=== PATIENT | male | born 1975 | race Caucasian/White ===

== ENCOUNTER 2016-10-26 20:27 | Inpatient (IN) | payer OTHER ==
[~2016-10-26] VITALS: Ht 188 cm; Wt 93.0 kg
--- NOTE | 2016-10-26 21:53 | PHYS DOC ---
Past Medical History Past Medical History: No Pertinent History Past Surgical History: No Surgical History Alcohol Use: Rarely Drug Use: None Adult General Chief Complaint Chief Complaint: ABDOMINAL PAIN HPI HPI 41-year-old gentleman presenting to the emergency department with periumbilical abdominal pain this started this morning around 8:00 AM. He was able to eat breakfast and lunch however has not eaten dinner because he was feeling nauseous. He denies any vomiting. He denies fevers or chills. He denies that the pain is migrating. It is sharp moderate nonradiating and without alleviating factors. View of systems is negative for fevers chills chest pain shortness of breath vomiting. He denies blood in his stools constipation or diarrhea. All other review of systems is negative unless otherwise noted in history of present illness. Review of Systems Review of Systems SEE ABOVE. Current Medications Current Medications Current Medications Medications (Trade) Dose Ordered Sig/Bhavna Start Time Stop Time Status Last Admin Dose Admin Clindamycin Phosphate 50 ml @ 100 mls/hr 1X ONCE 10/27/16 00:00 10/27/16 00:00 DC Fentanyl Citrate (Fentanyl 2ml Vial) 25 mcg 1X ONCE 10/26/16 22:00 10/26/16 22:01 DC Iohexol (Omnipaque 300 Mg/ml) 60 ml 1X ONCE 10/26/16 23:15 10/26/16 23:16 DC 10/26/16 23:25 60 ML Levofloxacin/ Dextrose 100 ml @ 100 mls/hr 1X ONCE 10/27/16 00:00 10/27/16 00:59 Metronidazole (FLAGYL 500Mmg PREMIX) 100 ml @ 100 mls/hr 1X ONCE 10/27/16 01:00 10/27/16 01:59 Morphine Sulfate 2 mg 2 mg PRN Q2HR PRN 10/27/16 00:00 10/27/16 23:59 Ondansetron HCl (Zofran) 4 mg PRN Q8HRS PRN 10/27/16 00:00 10/27/16 23:59 Sodium Chloride 1,000 ml @ 125 mls/hr Q8H 10/27/16 00:00 10/27/16 00:01 DC Sodium Chloride (Iv Sodium Chloride 0.9% 1000ml Bag) 1,000 ml @ 1,000 mls/hr Q1H 10/26/16 22:00 10/26/16 22:59 DC 10/26/16 22:44 1,000 MLS/HR Allergies Allergies Allergies Coded Allergies Type Severity Reaction Last Updated Verified Penicillins Allergy Intermediate RASH 10/26/16 Yes Physical Exam Physical Exam Constitutional: Well developed, well nourished, no acute distress, non-toxic appearance. HENT: Normocephalic, atraumatic, bilateral external ears normal, oropharynx moist, no oral exudates, nose normal. [] Eyes: PERRLA, EOMI, conjunctiva normal, no discharge. [] Neck: Normal range of motion, no tenderness, supple, no stridor. Cardiovascular:Heart rate regular rhythm, no murmur [] Lungs & Thorax: Bilateral breath sounds clear to auscultation Abdomen: Abdomen is soft and mildly tender in the right lower quadrant. No rebound tenderness or guarding is present. Positive McBurney's point. Negative Barba sign. No ecchymosis lacerations or abrasions. Of the abdomen. Skin: Warm, dry, no erythema, no rash. Back: No tenderness, no CVA tenderness. [] Extremities: No tenderness, no cyanosis, no clubbing, ROM intact, no edema. Neurologic: Alert and oriented X 3, normal motor function, normal sensory function, no focal deficits noted. [] Psychologic: Affect normal, judgement normal, mood normal. [] Current Patient Data Vital Signs Vital Signs Date Time Temp Pulse Resp B/P Pulse Ox O2 Delivery O2 Flow Rate FiO2 10/26/16 20:51 98.8 98 20 120/90 100 Room Air 98.8 Lab Values Laboratory Tests Test 10/26/16 21:34 10/26/16 22:35 White Blood Count 17.9x10^3/uL (4.0-11.0) H Red Blood Count 4.84x10^6/uL (4.30-5.70) Hemoglobin 15.1g/dL (13.0-17.5) Hematocrit 43.9% (39.0-53.0) Mean Corpuscular Volume 91fL (79-100) Mean Corpuscular Hemoglobin 31pg (25-35) Mean Corpuscular Hemoglobin Concent 35g/dL (31-37) Red Cell Distribution Width 12.4% (11.5-14.5) Platelet Count 248x10^3/uL (140-400) Neutrophils (%) (Auto) 84% (31-73) H Lymphocytes (%) (Auto) 8% (24-48) L Monocytes (%) (Auto) 7% (0-9) Eosinophils (%) (Auto) 1% (0-3) Basophils (%) (Auto) 0% (0-3) Neutrophils # (Auto) 14.9x10^3uL (1.8-7.7) H Lymphocytes # (Auto) 1.5x10^3/uL (1.0-4.8) Monocytes # (Auto) 1.3x10^3/uL (0.0-1.1) H Eosinophils # (Auto) 0.2x10^3/uL (0.0-0.7) Basophils # (Auto) 0.1x10^3/uL (0.0-0.2) Segmented Neutrophils % 78% (35-66) H Band Neutrophils % 4% (0-9) Lymphocytes % 13% (24-48) L Monocytes % 4% (0-10) Eosinophils % 1% (0-5) Platelet Estimate Adequate (ADEQUATE) Sodium Level 140mmol/L (136-145) Potassium Level 3.7mmol/L (3.5-5.1) Chloride Level 104mmol/L (98-107) Carbon Dioxide Level 29mmol/L (21-32) Anion Gap 7 (6-14) Blood Urea Nitrogen 19mg/dL (8-26) Creatinine 1.4mg/dL (0.7-1.3) H Estimated GFR (Cockcroft-Gault) 55.6 BUN/Creatinine Ratio 14 (6-20) Glucose Level 112mg/dL (70-99) H Calcium Level 9.0mg/dL (8.5-10.1) Total Bilirubin 0.4mg/dL (0.2-1.0) Aspartate Amino Transferase (AST) 21U/L (15-37) Alanine Aminotransferase (ALT) 38U/L (16-63) Alkaline Phosphatase 65U/L (46-116) Total Protein 7.5g/dL (6.4-8.2) Albumin 4.1g/dL (3.4-5.0) Albumin/Globulin Ratio 1.2 (1.0-1.7) Lipase 378U/L (73-393) Urine Collection Type Unknown Urine Color Yellow Urine Clarity Clear Urine pH 5.5 Urine Specific [place] 1.025 Urine Protein Negativemg/dL (NEG-TRACE) Urine Glucose (UA) Negativemg/dL (NEG) Urine Ketones (Stick) Negativemg/dL (NEG) Urine Blood Negative (NEG) Urine Nitrite Negative (NEG) Urine Bilirubin Negative (NEG) Urine Urobilinogen Dipstick 1.0mg/dL (0.2 mg/dL) Urine Leukocyte Esterase Negative (NEG) Urine RBC 0/HPF (0-2) Urine WBC 0/HPF (0-4) Urine Squamous Epithelial Cells Occ/LPF Urine Bacteria 0/HPF (0-FEW) Urine Mucus Mod/LPF Laboratory Tests 10/26/16 21:34 Laboratory Tests 10/26/16 21:34 EKG EKG [] Radiology/Procedures Radiology/Procedures [] Course & Med Decision Making Course & Med Decision Making Pertinent Labs and Imaging studies reviewed. (See chart for details) [] 41-year-old gentleman presenting to the emergency department today with right lower quadrant abdominal pain this started this morning around 8:00. Afebrile with mild tachycardia. Pertinent physical exam findings showed an equivocal McBurney's point. Blood work was obtained. CT the abdomen pelvis showed signs of appendicitis. The patient was given IV antibiotics and admitted to our hospital for further evaluation workup and care. Surgical consult was placed. Dragon Disclaimer Dragon Disclaimer This electronic medical record was generated, in whole or in part, using a voice recognition dictation system. Departure Departure Impression: Primary Impression: Abdominal pain, acute, right lower quadrant Disposition: ADMITTED INPATIENT Condition: STABLE Referrals: UNKNOWN PCP NAME (PCP) CR MILLER MD, AUSTIN L MD Oct 26, 2016 21:53
[2016-10-26 21:54] LABS: BASO # 0.1 x10^3/uL (0.0-0.2); BASO % 0 % (0-3); EOS % 1 % (0-3); HEMATOCRIT 43.9 % (39.0-53.0); HEMOGLOBIN 15.1 g/dL (13.0-17.5); LYMPH # 1.5 x10^3/uL (1.0-4.8); LYMPH % 8 % (24-48); MEAN CORPUSCULAR HEMOGLOBIN 31 pg (25-35); MEAN CORPUSCULAR HGB CONC 35 g/dL (31-37); MEAN CORPUSCULAR VOLUME 91 fL (79-100); MONO % 7 % (0-9); NEUT % 84 % (31-73); PLATELET COUNT 248 x10^3/uL (140-400); RED BLOOD COUNT 4.84 x10^6/uL (4.30-5.70); RED CELL DISTRIBUTION WIDTH 12.4 % (11.5-14.5); WHITE BLOOD COUNT 17.9 x10^3/uL (4.0-11.0)
[2016-10-26] MEDS ORDERED: FENTANYL PF 100 MCG/2 ML VIAL. IV ONE (22:00)
[2016-10-26] MEDS ORDERED: IV NORMAL SALINE 1000ML BAG 1,000 ML IV SCH (22:00)
[2016-10-26] MEDS ORDERED: ONDANSETRON PF 4 MG/2 ML VIAL. IV ONE (22:00)
[2016-10-26 22:07] LABS: CREATININE 1.4 mg/dL (0.7-1.3); GFR 55.6; POTASSIUM 3.7 mmol/L (3.5-5.1)
[2016-10-26 22:12] LABS: ALBUMIN 4.1 g/dL (3.4-5.0); ALBUMIN/GLOBULIN RATIO 1.2 (1.0-1.7); TOTAL BILIRUBIN 0.4 mg/dL (0.2-1.0); TOTAL PROTEIN 7.5 g/dL (6.4-8.2)
[2016-10-26 22:36] LABS: % EOS 1 % (0-5); PLT ESTIMATE ADEQUATE (ADEQUATE)
[2016-10-26 22:50] LABS: BILIRUBIN,URINE NEGATIVE (NEG); GLUCOSE,URINE NEGATIVE (NEG); NITRITE,URINE NEGATIVE (NEG); PH,URINE 5.5; PROTEIN,URINE NEGATIVE (NEG-TRACE)
[2016-10-26 22:56] LABS: BACTERIA,URINE 0 /HPF (0-FEW); RBC,URINE 0 /HPF (0-2); SQUAMOUS EPITHELIAL CELL,UR OCC /LPF; WBC,URINE 0 /HPF (0-4)
[2016-10-26] MEDS ORDERED: IOHEXOL 300 MG/ML 75 ML VIAL IV ONE (23:15)
--- NOTE | 2016-10-26 23:41 | RAD ---
INDICATION: Abdomen pain. COMPARISON: None TECHNIQUE: Axial CT images obtained through the abdomen and pelvis. Intravenous contrast was utilized. One or more of the following individualized dose reduction techniques were utilized for this examination: 1. Automated exposure control; 2. Adjustment of the mA and/or kV according to patient size; 3. Use of iterative reconstruction technique. FINDINGS: Abdominal aorta not aneurysmal. No intrahepatic bile duct dilation. No peripancreatic edema. Spleen unremarkable. No hydronephrosis. 8 millimeter nonobstructive right renal stone. No definite evidence of small bowel obstruction. Bladder unremarkable within limits of CT. Blind-ending tubular structure right lower quadrant measuring 13 millimeters with small amount of adjacent stranding to the fat. There is a suspected appendicolith. Degenerative changes of spine IMPRESSION: Findings concerning for acute appendicitis. Electronically signed by: Dimitris Trevino (Oct 26, 2016 23:40:04)
[2016-10-27] VITALS (13 sets, daily range): BP systolic 98–127; BP diastolic 53–80
[2016-10-27] MEDS ORDERED: IV NORMAL SALINE 1000ML BAG 1,000 ML IV SCH
[2016-10-27] MEDS ORDERED: CLINDAMYCIN 600MG PREMIX 50 ML IV ONE
--- NOTE | 2016-10-27 00:54 | ACF ---
Admission Forms Criteria ABDOMINAL PAIN Clinical Indications for Admission to Inpatient Care (Place 'X' for any and all applicable criteria): Admission is indicated for ANY ONE of the following(1)(2)(3)(4)(5): [X]I. Inpatient admission required rather than observation care (Also use Abdominal Pain: Observation Care, as appropriate) because of ANY ONE of the following: [ ]a) Severe pain requiring acute inpatient management [ ]b) Identification of etiology/finding that requires inpatient care (eg, aortic dissection, free air) [ ]c) Absent bowel sounds with complete ileus(6) [ ]d) Suspected toxic megacolon [ ]e) Severe electrolyte abnormalities requiring inpatient care [X]f) High fever or infection requiring inpatient admission as indicated by ANY ONE of following(7)(8): [X] i) Appropriate outpatient or observational care antimicrobial treatment unavailable, not effective, or not feasible [ ] ii) Documented bacteremia [ ] iii) Temperature > 104.9 degrees F (oral) [ ] iv) T >103.1 F (oral) or < 96.8 F(rectal) that does not respond to all emergency treatment measures [ ]g) Signs of intestinal obstruction [B] [ ]h) Hemodynamic instability [ ]i) IV fluid to replace significant ongoing losses (greater than 3 L/m2 per day) (12)(13) [ ]j) Percutaneous or open drainage (eg, abscess, biliary tract ) procedures [ ]k) Parenteral nutrition regimen that must be implemented on inpatient basis [ ]l) Other condition,treatment or monitoring requiring inpatient admission. [ ]II. Peritoneal signs present [ ]III. Surgery needed that cannot be performed on an ambulatory basis. [ ]IV. Evaluation requires patient to not eat or drink for extended period ( eg, more than 24 hours). [ ]V. Contraindications and/or Inappropriate clinical situations for Observational Care in patients with abdominal pain, when ANY ONE of the following is required: [ ]a) Thorough evaluation is required to prevent catastrophic events due to delays in diagnosing (e.g.Mesenteric ischemia) 1,3 [ ]b) Patient with severe pathology or with chronic symptoms unlikely to improve in the ED stay (3) [ ]. General contraindications and/or Inappropriate clinical situations for Observational Care in patients with abdominal pain, when ANY ONE of the following is required: [ ]a) Prediction of prolongation of LOS based on ANY ONE of the following may be considered as a contraindication for observational care 2, 3, 4, 5, 6, 7, 8, 9, 10, 11 [ ]i) Age > 65 yrs. [ ]ii) Patient arriving by ambulance [ ]iii) Patient with high acuity [ ]iv) Patient requiring vital sign monitoring [ ]v) Patient on IV medication [ ]b) Systolic blood pressures 180mmHg 3,12 [ ]c) Patient with altered mental status including delirium and other alteration of consciousness, (3) [ ]d) Patient whose discharge disposition will be to a [facility]ci home or rehabilitation home should not be managed in Emergency Department Observation Unit. CMS rule requires 3 days hospital stay before such placement.3,13 [ ]e) Patient with failure to thrive due to broad array of etiologies 3,16,17 [ ]f) Inability to ambulate 3,14 Extended stay beyond goal length of stay may be needed for(2)(3): [ ]a) Persistent abdominal pain with suspected intra-abdominal process [ ]b) Diagnosed condition requiring continued stay (e.g., pancreatitis, complicated diverticulitis) [ ]c) Surgery (e.g., colectomy) The original [employer] content created by [employer] has been revised. The portions of the content which have been revised are identified through the use of italic text or in bold, and [employer] has neither reviewed nor approved the modified material.All other unmodified content is copyright [employer]. Please see references footnoted in the original [employer] edition 2016 Admission Criteria Met?: Yes VIDHI ABARCA Oct 27, 2016 00:54
[2016-10-27] MEDS ORDERED: METRONIDAZOLE 500mg PREMIX 100 ML IV ONE (01:00)
[2016-10-27 03:02] LABS: BASO # 0.1 x10^3/uL (0.0-0.2); BASO % 0 % (0-3); EOS % 0 % (0-3); HEMATOCRIT 40.3 % (39.0-53.0); LYMPH # 1.6 x10^3/uL (1.0-4.8); LYMPH % 9 % (24-48); MEAN CORPUSCULAR HEMOGLOBIN 32 pg (25-35); MEAN CORPUSCULAR HGB CONC 35 g/dL (31-37); MEAN CORPUSCULAR VOLUME 91 fL (79-100); MONO % 9 % (0-9); NEUT % 81 % (31-73); PLATELET COUNT 204 x10^3/uL (140-400); RED BLOOD COUNT 4.43 x10^6/uL (4.30-5.70); RED CELL DISTRIBUTION WIDTH 12.1 % (11.5-14.5); WHITE BLOOD COUNT 17.4 x10^3/uL (4.0-11.0)
[2016-10-27 03:17] LABS: CALCIUM 8.5 mg/dL (8.5-10.1); CREATININE 1.3 mg/dL (0.7-1.3); GFR 60.5; POTASSIUM 3.4 mmol/L (3.5-5.1)
[2016-10-27] MEDS: ACETAMINOPHEN 325 MG TABLET. PO PRN ×2 (03:33→10:20)
[2016-10-27] MEDS ORDERED: ONDANSETRON PF 4 MG/2 ML VIAL. IV PRN ×3 (09:16→12:15)
[2016-10-27] MEDS: METRONIDAZOLE 500mg PREMIX 100 ML IV SCH ×2 (10:22→20:46)
[2016-10-27] MEDS: IV NORMAL SALINE 1000ML BAG 1,000 ML IV SCH ×2 (10:23→19:30)
--- NOTE | 2016-10-27 11:50 | PDOC ---
SURGICAL PROGRESS NOTE Subjective 41 yo M with appendicitis TO OR for lap vs open appendectomy R/B/A d/w pt and pt's Thanks for consult! [id number] Vital Signs Vital Signs Date Time Temp Pulse Resp B/P Pulse Ox O2 Delivery O2 Flow Rate FiO2 10/27/16 07:00 98.1 95 18 121/73 99 Room Air 98.1 I&O Intake and Output 10/27/16 07:00 Intake Total 1000 ml Balance 1000 ml Intake Oral 0 ml IV Total 1000 ml Labs Laboratory Tests Test 10/26/16 21:34 10/26/16 22:35 10/27/16 01:00 10/27/16 02:50 White Blood Count 17.9x10^3/uL (4.0-11.0) 17.4x10^3/uL (4.0-11.0) Red Blood Count 4.84x10^6/uL (4.30-5.70) 4.43x10^6/uL (4.30-5.70) Hemoglobin 15.1g/dL (13.0-17.5) 14.0g/dL (13.0-17.5) Hematocrit 43.9% (39.0-53.0) 40.3% (39.0-53.0) Mean Corpuscular Volume 91fL (79-100) 91fL (79-100) Mean Corpuscular Hemoglobin 31pg (25-35) 32pg (25-35) Mean Corpuscular Hemoglobin Concent 35g/dL (31-37) 35g/dL (31-37) Red Cell Distribution Width 12.4% (11.5-14.5) 12.1% (11.5-14.5) Platelet Count 248x10^3/uL (140-400) 204x10^3/uL (140-400) Neutrophils (%) (Auto) 84% (31-73) 81% (31-73) Lymphocytes (%) (Auto) 8% (24-48) 9% (24-48) Monocytes (%) (Auto) 7% (0-9) 9% (0-9) Eosinophils (%) (Auto) 1% (0-3) 0% (0-3) Basophils (%) (Auto) 0% (0-3) 0% (0-3) Neutrophils # (Auto) 14.9x10^3uL (1.8-7.7) 14.1x10^3uL (1.8-7.7) Lymphocytes # (Auto) 1.5x10^3/uL (1.0-4.8) 1.6x10^3/uL (1.0-4.8) Monocytes # (Auto) 1.3x10^3/uL (0.0-1.1) 1.6x10^3/uL (0.0-1.1) Eosinophils # (Auto) 0.2x10^3/uL (0.0-0.7) 0.0x10^3/uL (0.0-0.7) Basophils # (Auto) 0.1x10^3/uL (0.0-0.2) 0.1x10^3/uL (0.0-0.2) Segmented Neutrophils % 78% (35-66) Band Neutrophils % 4% (0-9) Lymphocytes % 13% (24-48) Monocytes % 4% (0-10) Eosinophils % 1% (0-5) Platelet Estimate Adequate (ADEQUATE) Sodium Level 140mmol/L (136-145) 136mmol/L (136-145) Potassium Level 3.7mmol/L (3.5-5.1) 3.4mmol/L (3.5-5.1) Chloride Level 104mmol/L (98-107) 105mmol/L (98-107) Carbon Dioxide Level 29mmol/L (21-32) 26mmol/L (21-32) Anion Gap 7 (6-14) 5 (6-14) Blood Urea Nitrogen 19mg/dL (8-26) 14mg/dL (8-26) Creatinine 1.4mg/dL (0.7-1.3) 1.3mg/dL (0.7-1.3) Estimated GFR (Cockcroft-Gault) 55.6 60.5 BUN/Creatinine Ratio 14 (6-20) Glucose Level 112mg/dL (70-99) 116mg/dL (70-99) Calcium Level 9.0mg/dL (8.5-10.1) 8.5mg/dL (8.5-10.1) Total Bilirubin 0.4mg/dL (0.2-1.0) Aspartate Amino Transf (AST/SGOT) 21U/L (15-37) Alanine Aminotransferase (ALT/SGPT) 38U/L (16-63) Alkaline Phosphatase 65U/L (46-116) Total Protein 7.5g/dL (6.4-8.2) Albumin 4.1g/dL (3.4-5.0) Albumin/Globulin Ratio 1.2 (1.0-1.7) Lipase 378U/L (73-393) Urine Collection Type Unknown Urine Color Yellow Urine Clarity Clear Urine pH 5.5 Urine Specific [place] 1.025 Urine Protein Negativemg/dL (NEG-TRACE) Urine Glucose (UA) Negativemg/dL (NEG) Urine Ketones (Stick) Negativemg/dL (NEG) Urine Blood Negative (NEG) Urine Nitrite Negative (NEG) Urine Bilirubin Negative (NEG) Urine Urobilinogen Dipstick 1.0mg/dL (0.2 mg/dL) Urine Leukocyte Esterase Negative (NEG) Urine RBC 0/HPF (0-2) Urine WBC 0/HPF (0-4) Urine Squamous Epithelial Cells Occ/LPF Urine Bacteria 0/HPF (0-FEW) Urine Mucus Mod/LPF Lactic Acid Level 1.2mmol/L (0.4-2.0) Laboratory Tests Test 10/26/16 21:34 10/26/16 22:35 10/27/16 01:00 10/27/16 02:50 White Blood Count 17.9x10^3/uL (4.0-11.0) 17.4x10^3/uL (4.0-11.0) Red Blood Count 4.84x10^6/uL (4.30-5.70) 4.43x10^6/uL (4.30-5.70) Hemoglobin 15.1g/dL (13.0-17.5) 14.0g/dL (13.0-17.5) Hematocrit 43.9% (39.0-53.0) 40.3% (39.0-53.0) Mean Corpuscular Volume 91fL (79-100) 91fL (79-100) Mean Corpuscular Hemoglobin 31pg (25-35) 32pg (25-35) Mean Corpuscular Hemoglobin Concent 35g/dL (31-37) 35g/dL (31-37) Red Cell Distribution Width 12.4% (11.5-14.5) 12.1% (11.5-14.5) Platelet Count 248x10^3/uL (140-400) 204x10^3/uL (140-400) Neutrophils (%) (Auto) 84% (31-73) 81% (31-73) Lymphocytes (%) (Auto) 8% (24-48) 9% (24-48) Monocytes (%) (Auto) 7% (0-9) 9% (0-9) Eosinophils (%) (Auto) 1% (0-3) 0% (0-3) Basophils (%) (Auto) 0% (0-3) 0% (0-3) Neutrophils # (Auto) 14.9x10^3uL (1.8-7.7) 14.1x10^3uL (1.8-7.7) Lymphocytes # (Auto) 1.5x10^3/uL (1.0-4.8) 1.6x10^3/uL (1.0-4.8) Monocytes # (Auto) 1.3x10^3/uL (0.0-1.1) 1.6x10^3/uL (0.0-1.1) Eosinophils # (Auto) 0.2x10^3/uL (0.0-0.7) 0.0x10^3/uL (0.0-0.7) Basophils # (Auto) 0.1x10^3/uL (0.0-0.2) 0.1x10^3/uL (0.0-0.2) Segmented Neutrophils % 78% (35-66) Band Neutrophils % 4% (0-9) Lymphocytes % 13% (24-48) Monocytes % 4% (0-10) Eosinophils % 1% (0-5) Platelet Estimate Adequate (ADEQUATE) Sodium Level 140mmol/L (136-145) 136mmol/L (136-145) Potassium Level 3.7mmol/L (3.5-5.1) 3.4mmol/L (3.5-5.1) Chloride Level 104mmol/L (98-107) 105mmol/L (98-107) Carbon Dioxide Level 29mmol/L (21-32) 26mmol/L (21-32) Anion Gap 7 (6-14) 5 (6-14) Blood Urea Nitrogen 19mg/dL (8-26) 14mg/dL (8-26) Creatinine 1.4mg/dL (0.7-1.3) 1.3mg/dL (0.7-1.3) Estimated GFR (Cockcroft-Gault) 55.6 60.5 BUN/Creatinine Ratio 14 (6-20) Glucose Level 112mg/dL (70-99) 116mg/dL (70-99) Calcium Level 9.0mg/dL (8.5-10.1) 8.5mg/dL (8.5-10.1) Total Bilirubin 0.4mg/dL (0.2-1.0) Aspartate Amino Transf (AST/SGOT) 21U/L (15-37) Alanine Aminotransferase (ALT/SGPT) 38U/L (16-63) Alkaline Phosphatase 65U/L (46-116) Total Protein 7.5g/dL (6.4-8.2) Albumin 4.1g/dL (3.4-5.0) Albumin/Globulin Ratio 1.2 (1.0-1.7) Lipase 378U/L (73-393) Urine Collection Type Unknown Urine Color Yellow Urine Clarity Clear Urine pH 5.5 Urine Specific [place] 1.025 Urine Protein Negativemg/dL (NEG-TRACE) Urine Glucose (UA) Negativemg/dL (NEG) Urine Ketones (Stick) Negativemg/dL (NEG) Urine Blood Negative (NEG) Urine Nitrite Negative (NEG) Urine Bilirubin Negative (NEG) Urine Urobilinogen Dipstick 1.0mg/dL (0.2 mg/dL) Urine Leukocyte Esterase Negative (NEG) Urine RBC 0/HPF (0-2) Urine WBC 0/HPF (0-4) Urine Squamous Epithelial Cells Occ/LPF Urine Bacteria 0/HPF (0-FEW) Urine Mucus Mod/LPF Lactic Acid Level 1.2mmol/L (0.4-2.0) Problem List Problems Medical Problems: (1) Abdominal pain, acute, right lower quadrant Status: Acute (2) Appendicitis Status: Acute Problems: MERLYN RUDOLPH MD Oct 27, 2016:50
[2016-10-27] MEDS ORDERED: PROPOFOL 20 ML IV ONE (12:00)
[2016-10-27] MEDS ORDERED: LIDOCAINE 2% 100 MG/5 ML SYRINGE. ONE (12:00)
[2016-10-27] MEDS ORDERED: SUCCINYLCHOLINE 200 MG/10 ML VIAL. ONE (12:01)
[2016-10-27] MEDS ORDERED: ROCURONIUM 50 MG/5 ML VIAL. ONE (12:01)
[2016-10-27] MEDS ORDERED: FENTANYL PF 100 MCG/2 ML VIAL. ONE (12:01)
[2016-10-27] MEDS ORDERED: IV RINGERS,LACTATED 1000ML 1,000 ML IV SCH (12:07)
[2016-10-27] MEDS ORDERED: HYDROMORPHONE 2 MG/ML VIAL. IV PRN (12:15)
[2016-10-27] MEDS ORDERED: FENTANYL PF 100 MCG/2 ML VIAL. IV PRN ×2 (12:15)
[2016-10-27] MEDS ORDERED: PROCHLORPERAZINE 10 MG/2 ML VIAL. IV PRN (12:15)
[2016-10-27] MEDS ORDERED: MORPHINE SULFATE 2 MG/ML DISP.SYRIN. IV PRN ×2 (12:15)
[2016-10-27] MEDS ORDERED: LIDOCAINE 1% 1 ML SYRINGE. ID PRN (12:15)
[2016-10-27] MEDS ORDERED: BUPIVAC MPF-EPI 0.5%-1:200000 30 ML VIAL. ONE (12:55)
[2016-10-27] MEDS ORDERED: DEXAMETHASONE SOD PHOS 20 MG/5 ML VIAL. ONE (13:14)
[2016-10-27] MEDS ORDERED: DESFLURANE 16 TO 30 MINUTES. IH ONE (13:14)
--- NOTE | 2016-10-27 13:34 | PDOC1 ---
History and Physical Date of Admission Date of Admission DATE: 10/27/16 TIME: 13:30 Identification/Chief Complaint Chief Complaint abd pain Source Source: Chart review History of Present Illness History of Present Illness pt out having OR Hx obtained from chart 41-year-old male acute onset periumbilical abdominal pain denied vomiting, fevers or chills. He denies that the pain is migrating. It is sharp moderate nonradiating and without alleviating factors. View of systems is negative for fevers chills chest pain shortness of breath vomiting. He denies blood in his stools constipation or diarrhea. All other review of systems is negative unless otherwise noted in history of present illness. Past Medical History Cardiovascular: No pertinent hx Pulmonary: No pertinent hx GI: No pertinent hx Heme/Onc: No pertinent hx Hepatobiliary: No pertinent hx Psych: No pertinent hx Rheumatologic: No pertinent hx Infectious disease: No pertinent hx ENT: No pertinent hx Renal/: No pertinent hx Endocrine: No pertinent hx Dermatology: No pertinent hx Past Surgical History Past Surgical History: No pertinent history Family History Family History: No Significant Social History Smoke: No ALCOHOL: none Drugs: None Current Problem List Problem List Problems Medical Problems: (1) Abdominal pain, acute, right lower quadrant Status: Acute (2) Appendicitis Status: Acute Problems: Current Medications Current Medications Current Medications Sodium Chloride (Iv Sodium Chloride 0.9% 1000ml Bag) 1,000 ml @ 1,000 mls/hr Q1H IV Last administered on 10/26/16 22:44; Start 10/26/16 at 22:00; Stop at 22:59; Status DC Fentanyl Citrate (Fentanyl 2ml Vial) 25 mcg 1X ONCE IV ; Start 10/26/16 at 22:00 ; Stop 10/26/16 at 22:01; Status DC Ondansetron HCl (Zofran) 4 mg 1X ONCE IV Last administered on 10/26/16 22:44; Start 10/26/16 at 22:00; Stop 10/26/16 at 22:01; Status DC Iohexol (Omnipaque 300 Mg/ml) 60 ml 1X ONCE IV Last administered on 10/26/16 23:25; Start 10/26/16 at 23:15; Stop 10/26/16 at 23:16; Status DC Ondansetron HCl (Zofran) 4 mg PRN Q8HRS PRN IV NAUSEA/VOMITING; Start 10/27/16 at 00:00; Stop 10/27/16 at 09:17; Status DC Morphine Sulfate 2 mg 2 mg PRN Q2HR PRN IV PAIN; Start 10/27/16 at 00:00; Stop 10/27/16 at 23:59 Sodium Chloride 1,000 ml @ 125 mls/hr Q8H IV Last administered on 10/27/16 01: 34; Start 10/27/16 at 00:00; Stop 10/27/16 at 00:01; Status DC Levofloxacin/ Dextrose 100 ml @ 100 mls/hr 1X ONCE IV Last administered on 03:04; Start 10/27/16 at 00:00; Stop 10/27/16 at 00:59; Status DC Clindamycin Phosphate 50 ml @ 100 mls/hr 1X ONCE IV ; Start 10/27/16 at 00:00; Stop 10/27/16 at 00:00; Status DC Metronidazole (FLAGYL 500Mmg PREMIX) 100 ml @ 100 mls/hr 1X ONCE IV Last administered on 10/27/16 04:46; Start 10/27/16 at 01:00; Stop 10/27/16 at 01:59; Status DC Acetaminophen (Tylenol) 650 mg PRN Q6HRS PRN PO MILD PAIN / TEMP Last administered on 10/27/16 10:20; Start 10/27/16 at 03:15 Ondansetron HCl 4 mg 4 mg PRN Q6HRS PRN IV NAUSEA/VOMITING Last administered on 10/27/16 10:21; Start 10/27/16 at 09:16 Sodium Chloride 1,000 ml @ 100 mls/hr Q10H IV Last administered on 10/27/16 10 :23; Start 10/27/16 at 09:30 Levofloxacin/ Dextrose 100 ml @ 100 mls/hr DAILY06 IV Last administered on 10/27 10:21; Start 10/27/16 at 09:30 Metronidazole 100 ml @ 100 mls/hr Q12HR IV Last administered on 10/27/16 10:22 ; Start 10/27/16 at 10:00 Propofol (Diprivan) 20 ml @ As Directed STK-MED ONCE IV ; Start 10/27/16 at 12:00 ; Stop 10/27/16 at 12:01; Status DC Lidocaine HCl (Lidocaine HCl 2% Abboject) 100 mg STK-MED ONCE .ROUTE ; Start 10/27/16 at 12:00; Stop 10/27/16 at 12:01; Status DC Fentanyl Citrate (Fentanyl 2ml Vial) 100 mcg STK-MED ONCE .ROUTE ; Start at 12:01; Stop 10/27/16 at 12:02; Status DC Rocuronium [place] (Zemuron) 50 mg STK-MED ONCE .ROUTE ; Start 10/27/16 at 12:01 ; Stop 10/27/16 at 12:02; Status DC Succinylcholine Chloride (Anectine) 200 mg STK-MED ONCE .ROUTE ; Start 10/27/16 at 12:01; Stop 10/27/16 at 12:02; Status DC Ondansetron HCl (Zofran) 4 mg PRN Q6HRS PRN IV NAUSEA/VOMITING; Start 10/27/16 at 12:15; Stop 10/28/16 at 12:14 Fentanyl Citrate (Fentanyl 2ml Vial) 25 mcg PRN Q5MIN PRN IV MILD PAIN; Start 10/27/16 at 12:15; Stop 10/28/16 at 12:14 Fentanyl Citrate (Fentanyl 2ml Vial) 50 mcg PRN Q5MIN PRN IV MODERATE PAIN; Start 10/27/16 at 12:15; Stop 10/28/16 at 12:14 Morphine Sulfate 1 mg 1 mg PRN Q10MIN PRN IV SEVERE PAIN; Start 10/27/16 at 12: 15; Stop 10/28/16 at 12:14 Lactated Ringer's (Iv Lactated Ringers) 1,000 ml @ 30 mls/hr Q24H IV ; Start at 12:07; Stop 10/28/16 at 00:06 Lidocaine HCl 2 ml PRN 1X PRN ID PRIOR TO IV START; Start 10/27/16 at 12:15; Stop 10/28/16 at 12:14 Hydromorphone HCl (Dilaudid) 0.5 mg PRN Q10MIN PRN IV SEV PAIN, Second choice; Start 10/27/16 at 12:15; Stop 10/28/16 at 12:14 Prochlorperazine Edisylate (Compazine) 5 mg PACU PRN PRN IV NAUSEA, MRX1; Start 10/27/16 at 12:15; Stop 10/28/16 at 12:14 Bupivacaine HCl/ Epinephrine Bitart (Sensorcain-Mpf Epi 0.5%-1:[id number]) 30 ml STK -MED ONCE .ROUTE ; Start 10/27/16 at 12:55; Stop 10/27/16 at 12:56; Status DC Dexamethasone Sodium Phosphate (Decadron) 20 mg STK-MED ONCE .ROUTE ; Start 10/27 at 13:14; Stop 10/27/16 at 13:15; Status DC Desflurane (Suprane) 15 ml STK-MED ONCE IH ; Start 10/27/16 at 13:14; Stop at 13:15; Status DC Allergies Allergies: Coded Allergies: Penicillins (Verified Allergy, Intermediate, RASH, 10/26/16) ROS Review of System out in oR Vitals Vitals Vital Signs Date Time Temp Pulse Resp B/P Pulse Ox O2 Delivery O2 Flow Rate FiO2 10/27/16 11:00 101.8 109 18 127/80 99 Room Air 101.8 Labs Labs Laboratory Tests Test 10/26/16 21:34 10/26/16 22:35 10/27/16 01:00 10/27/16 02:50 White Blood Count 17.9x10^3/uL (4.0-11.0) 17.4x10^3/uL (4.0-11.0) Red Blood Count 4.84x10^6/uL (4.30-5.70) 4.43x10^6/uL (4.30-5.70) Hemoglobin 15.1g/dL (13.0-17.5) 14.0g/dL (13.0-17.5) Hematocrit 43.9% (39.0-53.0) 40.3% (39.0-53.0) Mean Corpuscular Volume 91fL (79-100) 91fL (79-100) Mean Corpuscular Hemoglobin 31pg (25-35) 32pg (25-35) Mean Corpuscular Hemoglobin Concent 35g/dL (31-37) 35g/dL (31-37) Red Cell Distribution Width 12.4% (11.5-14.5) 12.1% (11.5-14.5) Platelet Count 248x10^3/uL (140-400) 204x10^3/uL (140-400) Neutrophils (%) (Auto) 84% (31-73) 81% (31-73) Lymphocytes (%) (Auto) 8% (24-48) 9% (24-48) Monocytes (%) (Auto) 7% (0-9) 9% (0-9) Eosinophils (%) (Auto) 1% (0-3) 0% (0-3) Basophils (%) (Auto) 0% (0-3) 0% (0-3) Neutrophils # (Auto) 14.9x10^3uL (1.8-7.7) 14.1x10^3uL (1.8-7.7) Lymphocytes # (Auto) 1.5x10^3/uL (1.0-4.8) 1.6x10^3/uL (1.0-4.8) Monocytes # (Auto) 1.3x10^3/uL (0.0-1.1) 1.6x10^3/uL (0.0-1.1) Eosinophils # (Auto) 0.2x10^3/uL (0.0-0.7) 0.0x10^3/uL (0.0-0.7) Basophils # (Auto) 0.1x10^3/uL (0.0-0.2) 0.1x10^3/uL (0.0-0.2) Segmented Neutrophils % 78% (35-66) Band Neutrophils % 4% (0-9) Lymphocytes % 13% (24-48) Monocytes % 4% (0-10) Eosinophils % 1% (0-5) Platelet Estimate Adequate (ADEQUATE) Sodium Level 140mmol/L (136-145) 136mmol/L (136-145) Potassium Level 3.7mmol/L (3.5-5.1) 3.4mmol/L (3.5-5.1) Chloride Level 104mmol/L (98-107) 105mmol/L (98-107) Carbon Dioxide Level 29mmol/L (21-32) 26mmol/L (21-32) Anion Gap 7 (6-14) 5 (6-14) Blood Urea Nitrogen 19mg/dL (8-26) 14mg/dL (8-26) Creatinine 1.4mg/dL (0.7-1.3) 1.3mg/dL (0.7-1.3) Estimated GFR (Cockcroft-Gault) 55.6 60.5 BUN/Creatinine Ratio 14 (6-20) Glucose Level 112mg/dL (70-99) 116mg/dL (70-99) Calcium Level 9.0mg/dL (8.5-10.1) 8.5mg/dL (8.5-10.1) Total Bilirubin 0.4mg/dL (0.2-1.0) Aspartate Amino Transf (AST/SGOT) 21U/L (15-37) Alanine Aminotransferase (ALT/SGPT) 38U/L (16-63) Alkaline Phosphatase 65U/L (46-116) Total Protein 7.5g/dL (6.4-8.2) Albumin 4.1g/dL (3.4-5.0) Albumin/Globulin Ratio 1.2 (1.0-1.7) Lipase 378U/L (73-393) Urine Collection Type Unknown Urine Color Yellow Urine Clarity Clear Urine pH 5.5 Urine Specific [place] 1.025 Urine Protein Negativemg/dL (NEG-TRACE) Urine Glucose (UA) Negativemg/dL (NEG) Urine Ketones (Stick) Negativemg/dL (NEG) Urine Blood Negative (NEG) Urine Nitrite Negative (NEG) Urine Bilirubin Negative (NEG) Urine Urobilinogen Dipstick 1.0mg/dL (0.2 mg/dL) Urine Leukocyte Esterase Negative (NEG) Urine RBC 0/HPF (0-2) Urine WBC 0/HPF (0-4) Urine Squamous Epithelial Cells Occ/LPF Urine Bacteria 0/HPF (0-FEW) Urine Mucus Mod/LPF Lactic Acid Level 1.2mmol/L (0.4-2.0) Laboratory Tests Test 10/26/16 21:34 10/26/16 22:35 10/27/16 01:00 10/27/16 02:50 White Blood Count 17.9x10^3/uL (4.0-11.0) 17.4x10^3/uL (4.0-11.0) Red Blood Count 4.84x10^6/uL (4.30-5.70) 4.43x10^6/uL (4.30-5.70) Hemoglobin 15.1g/dL (13.0-17.5) 14.0g/dL (13.0-17.5) Hematocrit 43.9% (39.0-53.0) 40.3% (39.0-53.0) Mean Corpuscular Volume 91fL (79-100) 91fL (79-100) Mean Corpuscular Hemoglobin 31pg (25-35) 32pg (25-35) Mean Corpuscular Hemoglobin Concent 35g/dL (31-37) 35g/dL (31-37) Red Cell Distribution Width 12.4% (11.5-14.5) 12.1% (11.5-14.5) Platelet Count 248x10^3/uL (140-400) 204x10^3/uL (140-400) Neutrophils (%) (Auto) 84% (31-73) 81% (31-73) Lymphocytes (%) (Auto) 8% (24-48) 9% (24-48) Monocytes (%) (Auto) 7% (0-9) 9% (0-9) Eosinophils (%) (Auto) 1% (0-3) 0% (0-3) Basophils (%) (Auto) 0% (0-3) 0% (0-3) Neutrophils # (Auto) 14.9x10^3uL (1.8-7.7) 14.1x10^3uL (1.8-7.7) Lymphocytes # (Auto) 1.5x10^3/uL (1.0-4.8) 1.6x10^3/uL (1.0-4.8) Monocytes # (Auto) 1.3x10^3/uL (0.0-1.1) 1.6x10^3/uL (0.0-1.1) Eosinophils # (Auto) 0.2x10^3/uL (0.0-0.7) 0.0x10^3/uL (0.0-0.7) Basophils # (Auto) 0.1x10^3/uL (0.0-0.2) 0.1x10^3/uL (0.0-0.2) Segmented Neutrophils % 78% (35-66) Band Neutrophils % 4% (0-9) Lymphocytes % 13% (24-48) Monocytes % 4% (0-10) Eosinophils % 1% (0-5) Platelet Estimate Adequate (ADEQUATE) Sodium Level 140mmol/L (136-145) 136mmol/L (136-145) Potassium Level 3.7mmol/L (3.5-5.1) 3.4mmol/L (3.5-5.1) Chloride Level 104mmol/L (98-107) 105mmol/L (98-107) Carbon Dioxide Level 29mmol/L (21-32) 26mmol/L (21-32) Anion Gap 7 (6-14) 5 (6-14) Blood Urea Nitrogen 19mg/dL (8-26) 14mg/dL (8-26) Creatinine 1.4mg/dL (0.7-1.3) 1.3mg/dL (0.7-1.3) Estimated GFR (Cockcroft-Gault) 55.6 60.5 BUN/Creatinine Ratio 14 (6-20) Glucose Level 112mg/dL (70-99) 116mg/dL (70-99) Calcium Level 9.0mg/dL (8.5-10.1) 8.5mg/dL (8.5-10.1) Total Bilirubin 0.4mg/dL (0.2-1.0) Aspartate Amino Transf (AST/SGOT) 21U/L (15-37) Alanine Aminotransferase (ALT/SGPT) 38U/L (16-63) Alkaline Phosphatase 65U/L (46-116) Total Protein 7.5g/dL (6.4-8.2) Albumin 4.1g/dL (3.4-5.0) Albumin/Globulin Ratio 1.2 (1.0-1.7) Lipase 378U/L (73-393) Urine Collection Type Unknown Urine Color Yellow Urine Clarity Clear Urine pH 5.5 Urine Specific [place] 1.025 Urine Protein Negativemg/dL (NEG-TRACE) Urine Glucose (UA) Negativemg/dL (NEG) Urine Ketones (Stick) Negativemg/dL (NEG) Urine Blood Negative (NEG) Urine Nitrite Negative (NEG) Urine Bilirubin Negative (NEG) Urine Urobilinogen Dipstick 1.0mg/dL (0.2 mg/dL) Urine Leukocyte Esterase Negative (NEG) Urine RBC 0/HPF (0-2) Urine WBC 0/HPF (0-4) Urine Squamous Epithelial Cells Occ/LPF Urine Bacteria 0/HPF (0-FEW) Urine Mucus Mod/LPF Lactic Acid Level 1.2mmol/L (0.4-2.0) VTE Prophylaxis Ordered VTE Prophylaxis Devices: Yes VTE Pharmacological Prophylaxi: Yes Assessment/Plan Assessment/Plan 1, Acute APPY 2. Leukocytosis POA (WBC 17)\ 3. Mild hypokalemia (3.4) 4. Obesity PLAn: Await from OR Replace K LAbs in AM Start zosyn IV given persistent leukocytosis SARAH Barclay RN Y Oct 27, 2016 13:34
[2016-10-27] MEDS ORDERED: ONDANSETRON PF 4 MG/2 ML VIAL. ONE (13:42)
[2016-10-27] MEDS ORDERED: GLYCOPYRROLATE 1 MG/5 ML VIAL. ONE (13:43)
[2016-10-27] MEDS ORDERED: NEOSTIGMINE METHYLSULFATE 5 MG/5 ML SYRINGE. ONE (13:43)
--- NOTE | 2016-10-27 15:42 | PDOC ---
BRIEF OPERATIVE NOTE Pre-Op Diagnosis Appendicitis Post-Op Diagnosis gangrenous appendicitis Procedure Performed Laparoscopic appendectomy Surgeon Juan Anesthesia Type: General, Local Blood Loss 50 IV Fluid 1000 Specimens Obtained appendix Findings gangrenous appendix Complications none Additional Remarks [id number] MERLYN RUDOLPH MD Oct 27, 2016 15:42
[2016-10-27] MEDS: IV RINGERS,LACTATED 1000ML 1,000 ML IV SCH (15:43)
[2016-10-27] MEDS ORDERED: 0.9 % SODIUM CHLORIDE 10 ML DISP.SYRIN. IV PRN (15:45)
--- NOTE | 2016-10-27 21:27 | CONS ---
DATE OF CONSULTATION: 10/27/2016 REFERRING PHYSICIANS: Dr. Nanci Le, Dr. Byron Davila. Thank you for the consult. CHIEF COMPLAINT: Right lower quadrant abdominal pain. DIAGNOSIS: Appendicitis. PLANNED PROCEDURE: Laparoscopic versus open appendectomy. HISTORY OF PRESENT ILLNESS: This is a pleasant 41-year-old male who reported developing abdominal pain and not feeling well yesterday morning. Throughout the day, things worsened and had some nausea, anorexia, subsequently presented to the Emergency Room for evaluation. He is accompanied by a supportive . He was admitted to the hospital and started on IV antibiotics. He does report feeling somewhat better today. He denies any previous episodes of anything like this. ALLERGIES: He has an allergy to PENICILLIN. MEDICATIONS: None. PAST MEDICAL HISTORY: None. PAST SURGICAL HISTORY: He had a previous lipoma excised from his right hip. SOCIAL HISTORY: No tobacco, very minimal social alcohol. FAMILY HISTORY: Positive for multiple family members with colon cancer and polyps. His father had carcinoid in the appendix. He routinely gets colonoscopies, but it has been 5 years since he had one last. He did not have any polyps at that time. REVIEW OF SYSTEMS: All systems reviewed and negative except for HPI. PHYSICAL EXAMINATION: GENERAL: Well developed, well nourished male, appearing uncomfortable. He is currently afebrile. VITAL SIGNS: Within normal limits. He did have some mild tachycardia initially, but this is improving. HEENT: Normocephalic, atraumatic, anicteric sclerae. Extraocular motions intact. Oropharynx clear. NECK: Supple. LUNGS: Bilateral chest excursion. No chest wall tenderness to palpation. ABDOMEN: Soft, nondistended. No peritoneal signs or tenderness to palpation in the right lower quadrant. EXTREMITIES: No clubbing, cyanosis or edema. CT scan of his abdomen and pelvis demonstrates tubular obstruction of the right lower quadrant with some adjacent fat stranding, which is a small amount, suspected appendicolith. LABORATORY DATA: Her white blood cell count is 17.9 on presentation, 17.4 later on, but does not have elevated bands. His other labs are essentially unremarkable. UA is unremarkable. IMPRESSION AND RECOMMENDATIONS: A 41-year-old male with appendicitis. He has been started on IV antibiotics and has some improvement. Plan on laparoscopic versus open appendectomy. The risks, benefits, alternatives are discussed with the patient and the patient's . Risks including but not limited to bleeding, infection, damage to surrounding structures, risk of anesthesia and risk of an open procedure. The patient and patient's appeared to understand and their insightful questions were answered and they agreed to proceed. Thank you for allowing participation in the care of this pleasant patient. MERLYN RUDOLPH MD DR: HUSSEIN/azeem JOB#: [id number] / [id number] BYRON Wan MD, CHUNMEI MD
--- NOTE | 2016-10-27 22:13 | OP ---
DATE OF SURGERY: 10/27/2016 REFERRING PHYSICIANS: Dr. Le and Dr. Davila. Thank you for the consult. PREOPERATIVE DIAGNOSIS: Appendicitis. POSTOPERATIVE DIAGNOSIS: Gangrenous appendicitis. PROCEDURE: Laparoscopic appendectomy. SURGEON: Matty Martinez MD. ESTIMATED BLOOD LOSS: 50 mL. FLUIDS: 1000 mL. COMPLICATIONS: None. FINDINGS: Gangrenous-appearing appendix. INDICATIONS: A 41-year-old male who presents with complaints of right lower quadrant abdominal pain. Imaging was concerning for appendicitis. Subsequently, it was felt the patient will best be served by laparoscopic versus open appendectomy. The patient and the patient's were informed of the risks, benefits, and alternatives of procedure, risks including but not limited to bleeding, infection, damage to the surrounding structures, risk of anesthesia, and risk of an open procedure. The patient and the patient's appeared to understand, and their insightful questions were answered, and they agreed to proceed. PROCEDURE: After obtaining informed consent, the patient was taken to the operating room and induced under general endotracheal anesthetic. The patient was prepped and draped in the usual fashion in the anterior abdominal wall. A 0.5% Marcaine with epinephrine was injected in left lower quadrant abdominal wall. Incision was made using 15-blade scalpel. A 5-mm nonbladed trocar was introduced in abdominal cavity under direct vision of the laparoscope. Pneumoperitoneum was established. Additional 12-port was placed in the supraumbilical area, and a 5-mm port was placed in the suprapubic area, all under direct vision of the laparoscope. The abdominal cavity was explored. The liver was normal in appearance. The visualized portion of viscera was normal in appearance. There was no evidence of trocar injury. The appendix was identified coming off the confluence of tenia at the level of cecum and noted to be gangrenous in nature. A defect was created in the mesoappendix. A gentle-load NADIA stapler was taken across the base of the appendix. A vascular load was taken across the mesoappendix. The appendix was placed in EndoCatch bag, brought out through the umbilical port and passed off field and sent to Pathology for evaluation. The abdominal cavity was copiously irrigated with normal saline solution. Additional hemostasis was obtained on the staple line using clips. There was no evidence of other pathology at the time of closure. All ports were removed under direct vision of laparoscope. There was no evidence port site bleeding. Fascial defect in the supraumbilical area was reapproximated using interrupted 0 Vicryl stitch using Endo Close. All skin incisions were reapproximated with multiple interrupted 4-0 Monocryl in subcuticular fashion. Sterile dressing was placed over all wounds. The patient tolerated the procedure well and was discharged to Recovery Room in stable condition. All counts were correct. There were no immediate complications. MATTY MARTINEZ MD DR: HUSSEIN/azeem JOB#: [id number] / [id number] BYRON Wan MD, CHUNMEI MD
[2016-10-28] MEDS: IV RINGERS,LACTATED 1000ML 1,000 ML IV SCH ×3 (01:43→20:19)
[2016-10-28 03:01] VITALS: BP 108/56
[2016-10-28] MEDS: ACETAMINOPHEN 325 MG TABLET. PO PRN (04:39)
[2016-10-28 04:53] LABS: BASO % 0 % (0-3); EOS % 0 % (0-3); HEMATOCRIT 35.4 % (39.0-53.0); HEMOGLOBIN 12.2 g/dL (13.0-17.5); LYMPH # 1.1 x10^3/uL (1.0-4.8); LYMPH % 5 % (24-48); MEAN CORPUSCULAR HEMOGLOBIN 32 pg (25-35); MEAN CORPUSCULAR HGB CONC 34 g/dL (31-37); MEAN CORPUSCULAR VOLUME 92 fL (79-100); MONO % 6 % (0-9); NEUT % 89 % (31-73); PLATELET COUNT 170 x10^3/uL (140-400); RED BLOOD COUNT 3.83 x10^6/uL (4.30-5.70); RED CELL DISTRIBUTION WIDTH 12.5 % (11.5-14.5); WHITE BLOOD COUNT 22.1 x10^3/uL (4.0-11.0)
[2016-10-28 05:07] LABS: CALCIUM 8.3 mg/dL (8.5-10.1); CREATININE 1.2 mg/dL (0.7-1.3); GFR 66.4; POTASSIUM 3.7 mmol/L (3.5-5.1)
[2016-10-28] MEDS: IV NORMAL SALINE 1000ML BAG 1,000 ML IV SCH ×3 (05:24→20:25)
[2016-10-28] MEDS: HYDROCODONE/APAP 5/325MG TABLET. PO PRN ×3 (05:27→20:25)
[2016-10-28 07:00] VITALS: BP 110/64
[2016-10-28] MEDS: METRONIDAZOLE 500mg PREMIX 100 ML IV SCH ×2 (08:32→20:23)
[2016-10-28 11:00] VITALS: BP 102/64
[2016-10-28 11:07] LABS: BASO % 0 % (0-3); EOS % 0 % (0-3); HEMOGLOBIN 12.5 g/dL (13.0-17.5); LYMPH # 1.4 x10^3/uL (1.0-4.8); LYMPH % 7 % (24-48); MEAN CORPUSCULAR HEMOGLOBIN 31 pg (25-35); MEAN CORPUSCULAR HGB CONC 35 g/dL (31-37); MEAN CORPUSCULAR VOLUME 90 fL (79-100); MONO % 7 % (0-9); NEUT % 86 % (31-73); PLATELET COUNT 177 x10^3/uL (140-400); RED CELL DISTRIBUTION WIDTH 12.3 % (11.5-14.5); WHITE BLOOD COUNT 18.8 x10^3/uL (4.0-11.0)
--- NOTE | 2016-10-28 12:21 | PDOC ---
PROGRESS NOTES Chief Complaint Chief Complaint Abdominal pain Appendicitis, POD #1 s/p appendectomy History of Present Illness History of Present Illness Patient seen and evaluated at bedside. Patient is up out of bed, walking back and forth from the bathroom. No acute events overnight. Patient is c/o right upper chest wall pain as well as a temporal headache. Patient was given pain medications with minimal improvement. d/w nurse about plan of care. Vitals Vitals Vital Signs Date Time Temp Pulse Resp B/P Pulse Ox O2 Delivery O2 Flow Rate FiO2 10/28/16 07:45 Room Air 10/28/16 07:00 98.2 94 18 110/64 97 98.2 10/27/16 17:07 10.0 Physical Exam General: Alert, Oriented X3, No acute distress Heart: Regular rate, Normal S1, No murmurs Lungs: Clear, Other (negative accessory muscle use ) Abdomen: Normal bowel sounds, Soft, Other (tendernes around trochar sites. ) Extremities: No clubbing, No cyanosis, No edema Skin: No rashes, No breakdown, Other (trochar sites clean, dry, and intact. negative surrounding erythema or drainage. ) Labs LABS Laboratory Tests Test 10/28/16 03:12 10/28/16 10:55 White Blood Count 22.1x10^3/uL (4.0-11.0) 18.8x10^3/uL (4.0-11.0) Red Blood Count 3.83x10^6/uL (4.30-5.70) 4.00x10^6/uL (4.30-5.70) Hemoglobin 12.2g/dL (13.0-17.5) 12.5g/dL (13.0-17.5) Hematocrit 35.4% (39.0-53.0) 36.0% (39.0-53.0) Mean Corpuscular Volume 92fL (79-100) 90fL (79-100) Mean Corpuscular Hemoglobin 32pg (25-35) 31pg (25-35) Mean Corpuscular Hemoglobin Concent 34g/dL (31-37) 35g/dL (31-37) Red Cell Distribution Width 12.5% (11.5-14.5) 12.3% (11.5-14.5) Platelet Count 170x10^3/uL (140-400) 177x10^3/uL (140-400) Neutrophils (%) (Auto) 89% (31-73) 86% (31-73) Lymphocytes (%) (Auto) 5% (24-48) 7% (24-48) Monocytes (%) (Auto) 6% (0-9) 7% (0-9) Eosinophils (%) (Auto) 0% (0-3) 0% (0-3) Basophils (%) (Auto) 0% (0-3) 0% (0-3) Neutrophils # (Auto) 19.7x10^3uL (1.8-7.7) 16.2x10^3uL (1.8-7.7) Lymphocytes # (Auto) 1.1x10^3/uL (1.0-4.8) 1.4x10^3/uL (1.0-4.8) Monocytes # (Auto) 1.2x10^3/uL (0.0-1.1) 1.3x10^3/uL (0.0-1.1) Eosinophils # (Auto) 0.0x10^3/uL (0.0-0.7) 0.0x10^3/uL (0.0-0.7) Basophils # (Auto) 0.0x10^3/uL (0.0-0.2) 0.0x10^3/uL (0.0-0.2) Sodium Level 144mmol/L (136-145) Potassium Level 3.7mmol/L (3.5-5.1) Chloride Level 108mmol/L (98-107) Carbon Dioxide Level 25mmol/L (21-32) Anion Gap 11 (6-14) Blood Urea Nitrogen 12mg/dL (8-26) Creatinine 1.2mg/dL (0.7-1.3) Estimated GFR (Cockcroft-Gault) 66.4 Glucose Level 114mg/dL (70-99) Calcium Level 8.3mg/dL (8.5-10.1) Review of Systems Review of Systems (+) right chest wall pain (+) abdominal pain to incision sites (+) headache Denies chest pain, sob, n/v/d, or fever/chills. Assessment and Plan Assessmemt and Plan Problems Medical Problems: (1) Abdominal pain, acute, right lower quadrant Status: Acute (2) Appendicitis Status: Acute 1.) acute appendicitis, POD #1 s/p appendectomy 2.) Leukocytosis, POA PLAn: 1.) continue fluids; advance diet per surgery 2.) continue flagyl, levaquin, and ertapenem 3.) repeat CBC stat 4.) continue wound care 5.) appreciate supspecialty input 6.) probable discharge pending resolving leukocytosis and clearance by surgery. 7.) pain control Problems: Comment Review of Relevant I have reviewed the following items anders (where applicable) has been applied. Labs Laboratory Tests Test 10/26/16 21:34 10/26/16 22:35 10/27/16 01:00 10/27/16 02:50 White Blood Count 17.9x10^3/uL (4.0-11.0) 17.4x10^3/uL (4.0-11.0) Red Blood Count 4.84x10^6/uL (4.30-5.70) 4.43x10^6/uL (4.30-5.70) Hemoglobin 15.1g/dL (13.0-17.5) 14.0g/dL (13.0-17.5) Hematocrit 43.9% (39.0-53.0) 40.3% (39.0-53.0) Mean Corpuscular Volume 91fL (79-100) 91fL (79-100) Mean Corpuscular Hemoglobin 31pg (25-35) 32pg (25-35) Mean Corpuscular Hemoglobin Concent 35g/dL (31-37) 35g/dL (31-37) Red Cell Distribution Width 12.4% (11.5-14.5) 12.1% (11.5-14.5) Platelet Count 248x10^3/uL (140-400) 204x10^3/uL (140-400) Neutrophils (%) (Auto) 84% (31-73) 81% (31-73) Lymphocytes (%) (Auto) 8% (24-48) 9% (24-48) Monocytes (%) (Auto) 7% (0-9) 9% (0-9) Eosinophils (%) (Auto) 1% (0-3) 0% (0-3) Basophils (%) (Auto) 0% (0-3) 0% (0-3) Neutrophils # (Auto) 14.9x10^3uL (1.8-7.7) 14.1x10^3uL (1.8-7.7) Lymphocytes # (Auto) 1.5x10^3/uL (1.0-4.8) 1.6x10^3/uL (1.0-4.8) Monocytes # (Auto) 1.3x10^3/uL (0.0-1.1) 1.6x10^3/uL (0.0-1.1) Eosinophils # (Auto) 0.2x10^3/uL (0.0-0.7) 0.0x10^3/uL (0.0-0.7) Basophils # (Auto) 0.1x10^3/uL (0.0-0.2) 0.1x10^3/uL (0.0-0.2) Segmented Neutrophils % 78% (35-66) Band Neutrophils % 4% (0-9) Lymphocytes % 13% (24-48) Monocytes % 4% (0-10) Eosinophils % 1% (0-5) Platelet Estimate Adequate (ADEQUATE) Sodium Level 140mmol/L (136-145) 136mmol/L (136-145) Potassium Level 3.7mmol/L (3.5-5.1) 3.4mmol/L (3.5-5.1) Chloride Level 104mmol/L (98-107) 105mmol/L (98-107) Carbon Dioxide Level 29mmol/L (21-32) 26mmol/L (21-32) Anion Gap 7 (6-14) 5 (6-14) Blood Urea Nitrogen 19mg/dL (8-26) 14mg/dL (8-26) Creatinine 1.4mg/dL (0.7-1.3) 1.3mg/dL (0.7-1.3) Estimated GFR (Cockcroft-Gault) 55.6 60.5 BUN/Creatinine Ratio 14 (6-20) Glucose Level 112mg/dL (70-99) 116mg/dL (70-99) Calcium Level 9.0mg/dL (8.5-10.1) 8.5mg/dL (8.5-10.1) Total Bilirubin 0.4mg/dL (0.2-1.0) Aspartate Amino Transf (AST/SGOT) 21U/L (15-37) Alanine Aminotransferase (ALT/SGPT) 38U/L (16-63) Alkaline Phosphatase 65U/L (46-116) Total Protein 7.5g/dL (6.4-8.2) Albumin 4.1g/dL (3.4-5.0) Albumin/Globulin Ratio 1.2 (1.0-1.7) Lipase 378U/L (73-393) Urine Collection Type Unknown Urine Color Yellow Urine Clarity Clear Urine pH 5.5 Urine Specific [place] 1.025 Urine Protein Negativemg/dL (NEG-TRACE) Urine Glucose (UA) Negativemg/dL (NEG) Urine Ketones (Stick) Negativemg/dL (NEG) Urine Blood Negative (NEG) Urine Nitrite Negative (NEG) Urine Bilirubin Negative (NEG) Urine Urobilinogen Dipstick 1.0mg/dL (0.2 mg/dL) Urine Leukocyte Esterase Negative (NEG) Urine RBC 0/HPF (0-2) Urine WBC 0/HPF (0-4) Urine Squamous Epithelial Cells Occ/LPF Urine Bacteria 0/HPF (0-FEW) Urine Mucus Mod/LPF Lactic Acid Level 1.2mmol/L (0.4-2.0) Test 10/28/16 03:12 10/28/16 10:55 White Blood Count 22.1x10^3/uL (4.0-11.0) 18.8x10^3/uL (4.0-11.0) Red Blood Count 3.83x10^6/uL (4.30-5.70) 4.00x10^6/uL (4.30-5.70) Hemoglobin 12.2g/dL (13.0-17.5) 12.5g/dL (13.0-17.5) Hematocrit 35.4% (39.0-53.0) 36.0% (39.0-53.0) Mean Corpuscular Volume 92fL (79-100) 90fL (79-100) Mean Corpuscular Hemoglobin 32pg (25-35) 31pg (25-35) Mean Corpuscular Hemoglobin Concent 34g/dL (31-37) 35g/dL (31-37) Red Cell Distribution Width 12.5% (11.5-14.5) 12.3% (11.5-14.5) Platelet Count 170x10^3/uL (140-400) 177x10^3/uL (140-400) Neutrophils (%) (Auto) 89% (31-73) 86% (31-73) Lymphocytes (%) (Auto) 5% (24-48) 7% (24-48) Monocytes (%) (Auto) 6% (0-9) 7% (0-9) Eosinophils (%) (Auto) 0% (0-3) 0% (0-3) Basophils (%) (Auto) 0% (0-3) 0% (0-3) Neutrophils # (Auto) 19.7x10^3uL (1.8-7.7) 16.2x10^3uL (1.8-7.7) Lymphocytes # (Auto) 1.1x10^3/uL (1.0-4.8) 1.4x10^3/uL (1.0-4.8) Monocytes # (Auto) 1.2x10^3/uL (0.0-1.1) 1.3x10^3/uL (0.0-1.1) Eosinophils # (Auto) 0.0x10^3/uL (0.0-0.7) 0.0x10^3/uL (0.0-0.7) Basophils # (Auto) 0.0x10^3/uL (0.0-0.2) 0.0x10^3/uL (0.0-0.2) Sodium Level 144mmol/L (136-145) Potassium Level 3.7mmol/L (3.5-5.1) Chloride Level 108mmol/L (98-107) Carbon Dioxide Level 25mmol/L (21-32) Anion Gap 11 (6-14) Blood Urea Nitrogen 12mg/dL (8-26) Creatinine 1.2mg/dL (0.7-1.3) Estimated GFR (Cockcroft-Gault) 66.4 Glucose Level 114mg/dL (70-99) Calcium Level 8.3mg/dL (8.5-10.1) Laboratory Tests Test 10/28/16 03:12 10/28/16 10:55 White Blood Count 22.1x10^3/uL (4.0-11.0) 18.8x10^3/uL (4.0-11.0) Red Blood Count 3.83x10^6/uL (4.30-5.70) 4.00x10^6/uL (4.30-5.70) Hemoglobin 12.2g/dL (13.0-17.5) 12.5g/dL (13.0-17.5) Hematocrit 35.4% (39.0-53.0) 36.0% (39.0-53.0) Mean Corpuscular Volume 92fL (79-100) 90fL (79-100) Mean Corpuscular Hemoglobin 32pg (25-35) 31pg (25-35) Mean Corpuscular Hemoglobin Concent 34g/dL (31-37) 35g/dL (31-37) Red Cell Distribution Width 12.5% (11.5-14.5) 12.3% (11.5-14.5) Platelet Count 170x10^3/uL (140-400) 177x10^3/uL (140-400) Neutrophils (%) (Auto) 89% (31-73) 86% (31-73) Lymphocytes (%) (Auto) 5% (24-48) 7% (24-48) Monocytes (%) (Auto) 6% (0-9) 7% (0-9) Eosinophils (%) (Auto) 0% (0-3) 0% (0-3) Basophils (%) (Auto) 0% (0-3) 0% (0-3) Neutrophils # (Auto) 19.7x10^3uL (1.8-7.7) 16.2x10^3uL (1.8-7.7) Lymphocytes # (Auto) 1.1x10^3/uL (1.0-4.8) 1.4x10^3/uL (1.0-4.8) Monocytes # (Auto) 1.2x10^3/uL (0.0-1.1) 1.3x10^3/uL (0.0-1.1) Eosinophils # (Auto) 0.0x10^3/uL (0.0-0.7) 0.0x10^3/uL (0.0-0.7) Basophils # (Auto) 0.0x10^3/uL (0.0-0.2) 0.0x10^3/uL (0.0-0.2) Sodium Level 144mmol/L (136-145) Potassium Level 3.7mmol/L (3.5-5.1) Chloride Level 108mmol/L (98-107) Carbon Dioxide Level 25mmol/L (21-32) Anion Gap 11 (6-14) Blood Urea Nitrogen 12mg/dL (8-26) Creatinine 1.2mg/dL (0.7-1.3) Estimated GFR (Cockcroft-Gault) 66.4 Glucose Level 114mg/dL (70-99) Calcium Level 8.3mg/dL (8.5-10.1) Medications Current Medications Sodium Chloride (Iv Sodium Chloride 0.9% 1000ml Bag) 1,000 ml @ 1,000 mls/hr Q1H IV Last administered on 10/26/16 22:44; Start 10/26/16 at 22:00; Stop at 22:59; Status DC Fentanyl Citrate (Fentanyl 2ml Vial) 25 mcg 1X ONCE IV ; Start 10/26/16 at 22:00 ; Stop 10/26/16 at 22:01; Status DC Ondansetron HCl (Zofran) 4 mg 1X ONCE IV Last administered on 10/26/16 22:44; Start 10/26/16 at 22:00; Stop 10/26/16 at 22:01; Status DC Iohexol (Omnipaque 300 Mg/ml) 60 ml 1X ONCE IV Last administered on 10/26/16 23:25; Start 10/26/16 at 23:15; Stop 10/26/16 at 23:16; Status DC Ondansetron HCl (Zofran) 4 mg PRN Q8HRS PRN IV NAUSEA/VOMITING; Start 10/27/16 at 00:00; Stop 10/27/16 at 09:17; Status DC Morphine Sulfate 2 mg 2 mg PRN Q2HR PRN IV PAIN Last administered on 10/27/16 17:07; Start 10/27/16 at 00:00; Stop 10/27/16 at 23:59; Status DC Sodium Chloride 1,000 ml @ 125 mls/hr Q8H IV Last administered on 10/27/16 01: 34; Start 10/27/16 at 00:00; Stop 10/27/16 at 00:01; Status DC Levofloxacin/ Dextrose 100 ml @ 100 mls/hr 1X ONCE IV Last administered on 03:04; Start 10/27/16 at 00:00; Stop 10/27/16 at 00:59; Status DC Clindamycin Phosphate 50 ml @ 100 mls/hr 1X ONCE IV ; Start 10/27/16 at 00:00; Stop 10/27/16 at 00:00; Status DC Metronidazole (FLAGYL 500Mmg PREMIX) 100 ml @ 100 mls/hr 1X ONCE IV Last administered on 10/27/16 04:46; Start 10/27/16 at 01:00; Stop 10/27/16 at 01:59; Status DC Acetaminophen (Tylenol) 650 mg PRN Q6HRS PRN PO MILD PAIN / TEMP Last administered on 10/28/16 04:39; Start 10/27/16 at 03:15 Ondansetron HCl 4 mg 4 mg PRN Q6HRS PRN IV NAUSEA/VOMITING Last administered on 10/27/16 10:21; Start 10/27/16 at 09:16 Sodium Chloride 1,000 ml @ 100 mls/hr Q10H IV Last administered on 10/28/16 05:24; Start 10/27/16 at 09:30 Levofloxacin/ Dextrose 100 ml @ 100 mls/hr DAILY06 IV Last administered on 05:24; Start 10/27/16 at 09:30 Metronidazole 100 ml @ 100 mls/hr Q12HR IV Last administered on 10/28/16 08: 32; Start 10/27/16 at 10:00 Propofol (Diprivan) 20 ml @ As Directed STK-MED ONCE IV ; Start 10/27/16 at 12:00 ; Stop 10/27/16 at 12:01; Status DC Lidocaine HCl (Lidocaine HCl 2% Abboject) 100 mg STK-MED ONCE .ROUTE ; Start 10/27/16 at 12:00; Stop 10/27/16 at 12:01; Status DC Fentanyl Citrate (Fentanyl 2ml Vial) 100 mcg STK-MED ONCE .ROUTE ; Start at 12:01; Stop 10/27/16 at 12:02; Status DC Rocuronium [place] (Zemuron) 50 mg STK-MED ONCE .ROUTE ; Start 10/27/16 at 12:01 ; Stop 10/27/16 at 12:02; Status DC Succinylcholine Chloride (Anectine) 200 mg STK-MED ONCE .ROUTE ; Start 10/27/16 at 12:01; Stop 10/27/16 at 12:02; Status DC Ondansetron HCl (Zofran) 4 mg PRN Q6HRS PRN IV NAUSEA/VOMITING; Start 10/27/16 at 12:15; Stop 10/27/16 at 19:00; Status DC Fentanyl Citrate (Fentanyl 2ml Vial) 25 mcg PRN Q5MIN PRN IV MILD PAIN Last administered on 10/27/16t 14:11; Start 10/27/16 at 12:15; Stop 10/27/16 at 19:00; Status DC Fentanyl Citrate (Fentanyl 2ml Vial) 50 mcg PRN Q5MIN PRN IV MODERATE PAIN; Start 10/27/16 at 12:15; Stop 10/27/16 at 19:00; Status DC Morphine Sulfate 1 mg 1 mg PRN Q10MIN PRN IV SEVERE PAIN; Start 10/27/16 at 12: 15; Stop 10/27/16 at 19:00; Status DC Lactated Ringer's (Iv Lactated Ringers) 1,000 ml @ 30 mls/hr Q24H IV ; Start at 12:07; Stop 10/27/16 at 17:17; Status DC Lidocaine HCl 2 ml PRN 1X PRN ID PRIOR TO IV START; Start 10/27/16 at 12:15; Stop 10/27/16 at 19:00; Status DC Hydromorphone HCl (Dilaudid) 0.5 mg PRN Q10MIN PRN IV SEV PAIN, Second choice; Start 10/27/16 at 12:15; Stop 10/27/16 at 19:00; Status DC Prochlorperazine Edisylate (Compazine) 5 mg PACU PRN PRN IV NAUSEA, MRX1 Last administered on 10/27/16 14:10; Start 10/27/16 at 12:15; Stop 10/27/16 at 19:00; Status DC Bupivacaine HCl/ Epinephrine Bitart (Sensorcain-Mpf Epi 0.5%-1:[id number]) 30 ml STK -MED ONCE .ROUTE Last administered on 10/27/16 13:28; Start 10/27/16 at 12:55; Stop 10/27/16 at 12:56; Status DC Dexamethasone Sodium Phosphate (Decadron) 20 mg STK-MED ONCE .ROUTE ; Start 10/27 at 13:14; Stop 10/27/16 at 13:15; Status DC Desflurane (Suprane) 15 ml STK-MED ONCE IH ; Start 10/27/16 at 13:14; Stop at 13:15; Status DC Ondansetron HCl (Zofran) 4 mg STK-MED ONCE .ROUTE ; Start 10/27/16 at 13:42; Stop 10/27/16 at 13:43; Status DC Glycopyrrolate (Robinul) 1 mg STK-MED ONCE .ROUTE ; Start 10/27/16 at 13:43; Stop 10/27/16 at 13:44; Status DC Neostigmine Methylsulfate 5 mg 5 mg STK-MED ONCE .ROUTE ; Start 10/27/16 at 13:43 ; Stop 10/27/16 at 13:44; Status DC Ertapenem/Sodium Chloride (Invanz/Iv Sodium Chloride 0.9% 50ml) 50 ml @ 100 mls /hr Q24H IV ; Start 10/28/16 at 16:00 Sodium Chloride 3 ml 3 ml QSHIFT PRN IV AFTER MEDS AND BLOOD DRAWS; Start at 15:45 Lactated Ringer's (Iv Lactated Ringers) 1,000 ml @ 100 mls/hr Q10H IV ; Start 10/27/16 at 15:43 Acetaminophen/ Hydrocodone Bitart (Lortab 5/325) 1 tab PRN Q4HRS PRN PO MILD PAIN Last administered on 4/10/17at 05:27; Start 10/27/16 at 15:45 Vitals/I & O Vital Sign - Last 24 Hours 10/27/16 10/27/16 10/27/16 10/27/16 13:58 13:58 14:11 14:13 Temp 98.2 98.2 Pulse 90 107 Resp 20 20 20 B/P 143/77 131/77 Pulse Ox 100 100 100 O2 Delivery Mask Simple Mask Simple Mask O2 Flow Rate 10 10 10.0 10 10/27/16 10/27/16 10/27/16 10/27/16 14:28 14:43 15:00 15:10 Temp 98.3 99.8 98.3 99.8 Pulse 100 102 124 Resp 20 20 20 B/P 131/77 116/69 117/66 Pulse Ox 96 94 96 94 O2 Delivery Room Air Room Air Room Air Room Air O2 Flow Rate 10.0 10/27/16 10/27/16 10/27/16 10/27/16 15:15 15:30 15:45 16:00 Temp 99.8 99.8 Pulse 117 127 117 117 Resp 20 18 18 18 B/P 116/64 117/59 107/64 103/59 Pulse Ox 95 95 94 95 O2 Delivery Room Air Room Air Room Air Room Air 10/27/16 10/27/16 10/27/16 10/27/16 16:30 17:00 17:07 18:00 Temp 98.7 98.7 Pulse 114 127 Resp 18 18 B/P 103/59 103/56 Pulse Ox 97 97 97 O2 Delivery Room Air Room Air Room Air Room Air O2 Flow Rate 10.0 10/27/16 10/27/16 10/27/16 10/27/16 18:00 20:00 20:12 23:21 Temp 98.2 98.5 98.2 98.5 Pulse 100 100 102 Resp 18 18 18 B/P 98/60 105/70 113/53 Pulse Ox 98 98 99 O2 Delivery Room Air Room Air Room Air Room Air 10/28/16 10/28/16 10/28/16 10/28/16 03:01 05:27 06:30 06:30 Temp 98.3 98.3 Pulse 82 Resp 18 16 20 16 B/P 108/56 Pulse Ox 100 O2 Delivery Room Air Room Air BiPAP/CPAP Room Air 10/28/16 10/28/16 07:00 07:45 Temp 98.2 98.2 Pulse 94 Resp 18 B/P 110/64 Pulse Ox 97 O2 Delivery Room Air Room Air Intake and Output 10/27/16 10/27/16 10/28/16 15:00 23:00 07:00 Intake Total 1125 ml 2766 ml 1032 ml Output Total 400 ml Balance 725 ml 2766 ml 1032 ml RADHA ONTIVEROS III DO Oct 28, 2016 12:21
[2016-10-28 15:00] VITALS: BP 126/83
[2016-10-28] MEDS ORDERED: ERTAPENEM 1 GM in IV NORMAL SALINE 50ML 50 ML IV SCH (16:00)
--- NOTE | 2016-10-28 16:05 | EKG ---
[facility] [address] [place] [address] Test Date: 2016-10-28 Test Time: 14:59:06 Pat Name: GARRETT SUAREZ Department: Room: 422 Gender: M Gag Writer: : 1975 Requested By: RADHA ONTIVEROS Order Number: [id number] Reading MD: Measurements Intervals North Rate: 86 P: 36 DC: 114 QRS: 64 QRSD: 78 T: 12 QT: 382 QTc: 460 Interpretive Statements SINUS RHYTHM LOW LIMB LEAD VOLTAGE NO SPECIFIC ECG ABNORMALITIES RI6.01 Unconfirmed report No previous ECG available for comparison
[2016-10-28] MEDS ORDERED: BUTALB/APAP/CAFEIN 50/325/40MG TABLET. PO PRN (16:15)
--- NOTE | 2016-10-28 16:17 | PDOC ---
Provider Note Provider Note SURG (Garrett Martinez) POD 2 gangrenous appendicitis feels better other than a right sided headache belly soft dressings dry Wyatt is anxious to get back to [place] still has leukocytosis recommended he stay for another 24 hrs of IV antibiotics and repeat labs he agrees fioricet for his headache MOODY TOMAS MD Oct 28, 2016 16:17
[2016-10-28 19:15] VITALS: BP 132/88
[2016-10-28 23:21] VITALS: BP 132/92
[2016-10-29 02:59] VITALS: BP 130/80
[2016-10-29] MEDS: HYDROCODONE/APAP 5/325MG TABLET. PO PRN ×2 (05:45→13:47)
[2016-10-29 07:00] VITALS: BP 126/78
[2016-10-29] MEDS: IV RINGERS,LACTATED 1000ML 1,000 ML IV SCH (07:43)
[2016-10-29 08:01] LABS: BASO % 0 % (0-3); EOS % 1 % (0-3); HEMATOCRIT 34.6 % (39.0-53.0); LYMPH # 0.9 x10^3/uL (1.0-4.8); LYMPH % 10 % (24-48); MEAN CORPUSCULAR HEMOGLOBIN 32 pg (25-35); MEAN CORPUSCULAR HGB CONC 35 g/dL (31-37); MEAN CORPUSCULAR VOLUME 92 fL (79-100); MONO % 10 % (0-9); NEUT % 79 % (31-73); PLATELET COUNT 148 x10^3/uL (140-400); RED BLOOD COUNT 3.78 x10^6/uL (4.30-5.70); RED CELL DISTRIBUTION WIDTH 12.5 % (11.5-14.5); WHITE BLOOD COUNT 8.5 x10^3/uL (4.0-11.0)
[2016-10-29] MEDS: METRONIDAZOLE 500mg PREMIX 100 ML IV SCH (08:22)
[2016-10-29 08:33] LABS: CALCIUM 7.9 mg/dL (8.5-10.1); CREATININE 1.2 mg/dL (0.7-1.3); GFR 66.4; POTASSIUM 3.5 mmol/L (3.5-5.1)
--- NOTE | 2016-10-29 09:17 | PDOC ---
SURGICAL PROGRESS NOTE Subjective Pt feels much better, jeremy PO, yesterday with cp (suspect secondary to pneumoperitoneum), now resolved Vital Signs Vital Signs Date Time Temp Pulse Resp B/P Pulse Ox O2 Delivery O2 Flow Rate FiO2 10/29/16 08:23 Room Air 10/29/16 07:00 97.5 94 18 126/78 98 97.5 I&O Intake and Output 10/29/16 07:00 Intake Total 1280 ml Balance 1280 ml Intake Oral 1280 ml # Voids 3 General: Alert, Oriented X3, Cooperative, No acute distress Abdomen: Soft, No tenderness, Other (incisions c/d/i) Labs Laboratory Tests Test 10/28/16 03:12 10/28/16 10:55 10/29/16 06:15 White Blood Count 22.1x10^3/uL (4.0-11.0) 18.8x10^3/uL (4.0-11.0) 8.5x10^3/uL (4.0-11.0) Red Blood Count 3.83x10^6/uL (4.30-5.70) 4.00x10^6/uL (4.30-5.70) 3.78x10^6/uL (4.30-5.70) Hemoglobin 12.2g/dL (13.0-17.5) 12.5g/dL (13.0-17.5) 12.0g/dL (13.0-17.5) Hematocrit 35.4% (39.0-53.0) 36.0% (39.0-53.0) 34.6% (39.0-53.0) Mean Corpuscular Volume 92fL (79-100) 90fL (79-100) 92fL (79-100) Mean Corpuscular Hemoglobin 32pg (25-35) 31pg (25-35) 32pg (25-35) Mean Corpuscular Hemoglobin Concent 34g/dL (31-37) 35g/dL (31-37) 35g/dL (31-37) Red Cell Distribution Width 12.5% (11.5-14.5) 12.3% (11.5-14.5) 12.5% (11.5-14.5) Platelet Count 170x10^3/uL (140-400) 177x10^3/uL (140-400) 148x10^3/uL (140-400) Neutrophils (%) (Auto) 89% (31-73) 86% (31-73) 79% (31-73) Lymphocytes (%) (Auto) 5% (24-48) 7% (24-48) 10% (24-48) Monocytes (%) (Auto) 6% (0-9) 7% (0-9) 10% (0-9) Eosinophils (%) (Auto) 0% (0-3) 0% (0-3) 1% (0-3) Basophils (%) (Auto) 0% (0-3) 0% (0-3) 0% (0-3) Neutrophils # (Auto) 19.7x10^3uL (1.8-7.7) 16.2x10^3uL (1.8-7.7) 6.7x10^3uL (1.8-7.7) Lymphocytes # (Auto) 1.1x10^3/uL (1.0-4.8) 1.4x10^3/uL (1.0-4.8) 0.9x10^3/uL (1.0-4.8) Monocytes # (Auto) 1.2x10^3/uL (0.0-1.1) 1.3x10^3/uL (0.0-1.1) 0.8x10^3/uL (0.0-1.1) Eosinophils # (Auto) 0.0x10^3/uL (0.0-0.7) 0.0x10^3/uL (0.0-0.7) 0.1x10^3/uL (0.0-0.7) Basophils # (Auto) 0.0x10^3/uL (0.0-0.2) 0.0x10^3/uL (0.0-0.2) 0.0x10^3/uL (0.0-0.2) Sodium Level 144mmol/L (136-145) 140mmol/L (136-145) Potassium Level 3.7mmol/L (3.5-5.1) 3.5mmol/L (3.5-5.1) Chloride Level 108mmol/L (98-107) 106mmol/L (98-107) Carbon Dioxide Level 25mmol/L (21-32) 24mmol/L (21-32) Anion Gap 11 (6-14) 10 (6-14) Blood Urea Nitrogen 12mg/dL (8-26) 11mg/dL (8-26) Creatinine 1.2mg/dL (0.7-1.3) 1.2mg/dL (0.7-1.3) Estimated GFR (Cockcroft-Gault) 66.4 66.4 Glucose Level 114mg/dL (70-99) 114mg/dL (70-99) Calcium Level 8.3mg/dL (8.5-10.1) 7.9mg/dL (8.5-10.1) Laboratory Tests Test 10/28/16 10:55 10/29/16 06:15 White Blood Count 18.8x10^3/uL (4.0-11.0) 8.5x10^3/uL (4.0-11.0) Red Blood Count 4.00x10^6/uL (4.30-5.70) 3.78x10^6/uL (4.30-5.70) Hemoglobin 12.5g/dL (13.0-17.5) 12.0g/dL (13.0-17.5) Hematocrit 36.0% (39.0-53.0) 34.6% (39.0-53.0) Mean Corpuscular Volume 90fL (79-100) 92fL (79-100) Mean Corpuscular Hemoglobin 31pg (25-35) 32pg (25-35) Mean Corpuscular Hemoglobin Concent 35g/dL (31-37) 35g/dL (31-37) Red Cell Distribution Width 12.3% (11.5-14.5) 12.5% (11.5-14.5) Platelet Count 177x10^3/uL (140-400) 148x10^3/uL (140-400) Neutrophils (%) (Auto) 86% (31-73) 79% (31-73) Lymphocytes (%) (Auto) 7% (24-48) 10% (24-48) Monocytes (%) (Auto) 7% (0-9) 10% (0-9) Eosinophils (%) (Auto) 0% (0-3) 1% (0-3) Basophils (%) (Auto) 0% (0-3) 0% (0-3) Neutrophils # (Auto) 16.2x10^3uL (1.8-7.7) 6.7x10^3uL (1.8-7.7) Lymphocytes # (Auto) 1.4x10^3/uL (1.0-4.8) 0.9x10^3/uL (1.0-4.8) Monocytes # (Auto) 1.3x10^3/uL (0.0-1.1) 0.8x10^3/uL (0.0-1.1) Eosinophils # (Auto) 0.0x10^3/uL (0.0-0.7) 0.1x10^3/uL (0.0-0.7) Basophils # (Auto) 0.0x10^3/uL (0.0-0.2) 0.0x10^3/uL (0.0-0.2) Sodium Level 140mmol/L (136-145) Potassium Level 3.5mmol/L (3.5-5.1) Chloride Level 106mmol/L (98-107) Carbon Dioxide Level 24mmol/L (21-32) Anion Gap 10 (6-14) Blood Urea Nitrogen 11mg/dL (8-26) Creatinine 1.2mg/dL (0.7-1.3) Estimated GFR (Cockcroft-Gault) 66.4 Glucose Level 114mg/dL (70-99) Calcium Level 7.9mg/dL (8.5-10.1) Problem List Problems Medical Problems: (1) Abdominal pain, acute, right lower quadrant Status: Acute (2) Appendicitis Status: Acute Assessment/Plan s/p lap appendectomy OK to d/c home on PO abx f/u with Juan in 2 weeks (OK to do by phone call) Problems: MERLYN RUDOLPH MD Oct 29, 2016 09:17
[2016-10-29 10:50] VITALS: BP 129/83
[2016-10-29] MEDS: IV NORMAL SALINE 1000ML BAG 1,000 ML IV SCH (11:30)
--- NOTE | 2016-10-29 12:40 | PDOC ---
PROGRESS NOTES Chief Complaint Chief Complaint Abdominal pain Appendicitis, POD #1 s/p appendectomy History of Present Illness History of Present Illness Patient seen and evaluated at bedside. No acute events overnight. Patient continues to have pleuritic pain, localized to R lower chest. Patient reports his headache has improved minimally with the fiorcet. WBC WNL. Patient is anxious to be traveling back to [place]. d/w nurse. Vitals Vitals Vital Signs Date Time Temp Pulse Resp B/P Pulse Ox O2 Delivery O2 Flow Rate FiO2 10/29/16 10:50 98.1 93 18 129/83 99 Room Air 98.1 Physical Exam General: Alert, Oriented X3, Cooperative, No acute distress Heart: Regular rate, Normal S1, No murmurs Lungs: Clear, Other (negative accessory muscle use ) Abdomen: Soft, No tenderness, Other (incisions c/d/i) Extremities: No clubbing, No cyanosis, No edema Skin: No rashes, No breakdown, Other (trochar sites clean, dry, and intact. negative surrounding erythema or drainage. ) Labs LABS Laboratory Tests Test 10/29/16 06:15 White Blood Count 8.5x10^3/uL (4.0-11.0) Red Blood Count 3.78x10^6/uL (4.30-5.70) Hemoglobin 12.0g/dL (13.0-17.5) Hematocrit 34.6% (39.0-53.0) Mean Corpuscular Volume 92fL (79-100) Mean Corpuscular Hemoglobin 32pg (25-35) Mean Corpuscular Hemoglobin Concent 35g/dL (31-37) Red Cell Distribution Width 12.5% (11.5-14.5) Platelet Count 148x10^3/uL (140-400) Neutrophils (%) (Auto) 79% (31-73) Lymphocytes (%) (Auto) 10% (24-48) Monocytes (%) (Auto) 10% (0-9) Eosinophils (%) (Auto) 1% (0-3) Basophils (%) (Auto) 0% (0-3) Neutrophils # (Auto) 6.7x10^3uL (1.8-7.7) Lymphocytes # (Auto) 0.9x10^3/uL (1.0-4.8) Monocytes # (Auto) 0.8x10^3/uL (0.0-1.1) Eosinophils # (Auto) 0.1x10^3/uL (0.0-0.7) Basophils # (Auto) 0.0x10^3/uL (0.0-0.2) Sodium Level 140mmol/L (136-145) Potassium Level 3.5mmol/L (3.5-5.1) Chloride Level 106mmol/L (98-107) Carbon Dioxide Level 24mmol/L (21-32) Anion Gap 10 (6-14) Blood Urea Nitrogen 11mg/dL (8-26) Creatinine 1.2mg/dL (0.7-1.3) Estimated GFR (Cockcroft-Gault) 66.4 Glucose Level 114mg/dL (70-99) Calcium Level 7.9mg/dL (8.5-10.1) Review of Systems Review of Systems (+) right lower pleuritic chest pain (+) headache Denies sob, abdominal pain, n/v/d, lightheadedness/dizziness, vision changes, or fever/chills. Assessment and Plan Assessmemt and Plan Problems Medical Problems: (1) Abdominal pain, acute, right lower quadrant Status: Acute (2) Appendicitis Status: Acute 1.) acute appendicitis, POD #2 s/p laparoscopic appendectomy 2.) Leukocytosis, POA. now resolved 3.) right pleuritic chest pain, suspect pneumoperitoneum PLAn: 1.) Discharge if agreeable with surgery 2.) prescription pain medications given 3.) f/u with surgery and pcp in 2 weeks 4.) activity as tolerated. Problems: Comment Review of Relevant I have reviewed the following items anders (where applicable) has been applied. Labs Laboratory Tests Test 10/28/16 03:12 10/28/16 10:55 10/29/16 06:15 White Blood Count 22.1x10^3/uL (4.0-11.0) 18.8x10^3/uL (4.0-11.0) 8.5x10^3/uL (4.0-11.0) Red Blood Count 3.83x10^6/uL (4.30-5.70) 4.00x10^6/uL (4.30-5.70) 3.78x10^6/uL (4.30-5.70) Hemoglobin 12.2g/dL (13.0-17.5) 12.5g/dL (13.0-17.5) 12.0g/dL (13.0-17.5) Hematocrit 35.4% (39.0-53.0) 36.0% (39.0-53.0) 34.6% (39.0-53.0) Mean Corpuscular Volume 92fL (79-100) 90fL (79-100) 92fL (79-100) Mean Corpuscular Hemoglobin 32pg (25-35) 31pg (25-35) 32pg (25-35) Mean Corpuscular Hemoglobin Concent 34g/dL (31-37) 35g/dL (31-37) 35g/dL (31-37) Red Cell Distribution Width 12.5% (11.5-14.5) 12.3% (11.5-14.5) 12.5% (11.5-14.5) Platelet Count 170x10^3/uL (140-400) 177x10^3/uL (140-400) 148x10^3/uL (140-400) Neutrophils (%) (Auto) 89% (31-73) 86% (31-73) 79% (31-73) Lymphocytes (%) (Auto) 5% (24-48) 7% (24-48) 10% (24-48) Monocytes (%) (Auto) 6% (0-9) 7% (0-9) 10% (0-9) Eosinophils (%) (Auto) 0% (0-3) 0% (0-3) 1% (0-3) Basophils (%) (Auto) 0% (0-3) 0% (0-3) 0% (0-3) Neutrophils # (Auto) 19.7x10^3uL (1.8-7.7) 16.2x10^3uL (1.8-7.7) 6.7x10^3uL (1.8-7.7) Lymphocytes # (Auto) 1.1x10^3/uL (1.0-4.8) 1.4x10^3/uL (1.0-4.8) 0.9x10^3/uL (1.0-4.8) Monocytes # (Auto) 1.2x10^3/uL (0.0-1.1) 1.3x10^3/uL (0.0-1.1) 0.8x10^3/uL (0.0-1.1) Eosinophils # (Auto) 0.0x10^3/uL (0.0-0.7) 0.0x10^3/uL (0.0-0.7) 0.1x10^3/uL (0.0-0.7) Basophils # (Auto) 0.0x10^3/uL (0.0-0.2) 0.0x10^3/uL (0.0-0.2) 0.0x10^3/uL (0.0-0.2) Sodium Level 144mmol/L (136-145) 140mmol/L (136-145) Potassium Level 3.7mmol/L (3.5-5.1) 3.5mmol/L (3.5-5.1) Chloride Level 108mmol/L (98-107) 106mmol/L (98-107) Carbon Dioxide Level 25mmol/L (21-32) 24mmol/L (21-32) Anion Gap 11 (6-14) 10 (6-14) Blood Urea Nitrogen 12mg/dL (8-26) 11mg/dL (8-26) Creatinine 1.2mg/dL (0.7-1.3) 1.2mg/dL (0.7-1.3) Estimated GFR (Cockcroft-Gault) 66.4 66.4 Glucose Level 114mg/dL (70-99) 114mg/dL (70-99) Calcium Level 8.3mg/dL (8.5-10.1) 7.9mg/dL (8.5-10.1) Laboratory Tests Test 10/29/16 06:15 White Blood Count 8.5x10^3/uL (4.0-11.0) Red Blood Count 3.78x10^6/uL (4.30-5.70) Hemoglobin 12.0g/dL (13.0-17.5) Hematocrit 34.6% (39.0-53.0) Mean Corpuscular Volume 92fL (79-100) Mean Corpuscular Hemoglobin 32pg (25-35) Mean Corpuscular Hemoglobin Concent 35g/dL (31-37) Red Cell Distribution Width 12.5% (11.5-14.5) Platelet Count 148x10^3/uL (140-400) Neutrophils (%) (Auto) 79% (31-73) Lymphocytes (%) (Auto) 10% (24-48) Monocytes (%) (Auto) 10% (0-9) Eosinophils (%) (Auto) 1% (0-3) Basophils (%) (Auto) 0% (0-3) Neutrophils # (Auto) 6.7x10^3uL (1.8-7.7) Lymphocytes # (Auto) 0.9x10^3/uL (1.0-4.8) Monocytes # (Auto) 0.8x10^3/uL (0.0-1.1) Eosinophils # (Auto) 0.1x10^3/uL (0.0-0.7) Basophils # (Auto) 0.0x10^3/uL (0.0-0.2) Sodium Level 140mmol/L (136-145) Potassium Level 3.5mmol/L (3.5-5.1) Chloride Level 106mmol/L (98-107) Carbon Dioxide Level 24mmol/L (21-32) Anion Gap 10 (6-14) Blood Urea Nitrogen 11mg/dL (8-26) Creatinine 1.2mg/dL (0.7-1.3) Estimated GFR (Cockcroft-Gault) 66.4 Glucose Level 114mg/dL (70-99) Calcium Level 7.9mg/dL (8.5-10.1) Medications Current Medications Sodium Chloride (Iv Sodium Chloride 0.9% 1000ml Bag) 1,000 ml @ 1,000 mls/hr Q1H IV Last administered on 10/26/16t 22:44; Start 10/26/16 at 22:00; Stop at 22:59; Status DC Fentanyl Citrate (Fentanyl 2ml Vial) 25 mcg 1X ONCE IV ; Start 10/26/16 at 22:00 ; Stop 10/26/16 at 22:01; Status DC Ondansetron HCl (Zofran) 4 mg 1X ONCE IV Last administered on 10/26/16 22:44; Start 10/26/16 at 22:00; Stop 10/26/16 at 22:01; Status DC Iohexol (Omnipaque 300 Mg/ml) 60 ml 1X ONCE IV Last administered on 10/26/16 23:25; Start 10/26/16 at 23:15; Stop 10/26/16 at 23:16; Status DC Ondansetron HCl (Zofran) 4 mg PRN Q8HRS PRN IV NAUSEA/VOMITING; Start 10/27/16 at 00:00; Stop 10/27/16 at 09:17; Status DC Morphine Sulfate 2 mg 2 mg PRN Q2HR PRN IV PAIN Last administered on 10/27/16 17:07; Start 10/27/16 at 00:00; Stop 10/27/16 at 23:59; Status DC Sodium Chloride 1,000 ml @ 125 mls/hr Q8H IV Last administered on 10/27/16 01: 34; Start 10/27/16 at 00:00; Stop 10/27/16 at 00:01; Status DC Levofloxacin/ Dextrose 100 ml @ 100 mls/hr 1X ONCE IV Last administered on 03:04; Start 10/27/16 at 00:00; Stop 10/27/16 at 00:59; Status DC Clindamycin Phosphate 50 ml @ 100 mls/hr 1X ONCE IV ; Start 10/27/16 at 00:00; Stop 10/27/16 at 00:00; Status DC Metronidazole (FLAGYL 500Mmg PREMIX) 100 ml @ 100 mls/hr 1X ONCE IV Last administered on 10/27/16 04:46; Start 10/27/16 at 01:00; Stop 10/27/16 at 01:59; Status DC Acetaminophen (Tylenol) 650 mg PRN Q6HRS PRN PO MILD PAIN / TEMP Last administered on 10/28/16 04:39; Start 10/27/16 at 03:15 Ondansetron HCl 4 mg 4 mg PRN Q6HRS PRN IV NAUSEA/VOMITING Last administered on 10/27/16 10:21; Start 10/27/16 at 09:16 Sodium Chloride 1,000 ml @ 100 mls/hr Q10H IV Last administered on 10/28/16 20:25; Start 10/27/16 at 09:30 Levofloxacin/ Dextrose 100 ml @ 100 mls/hr DAILY06 IV Last administered on 05:46; Start 10/27/16 at 09:30 Metronidazole 100 ml @ 100 mls/hr Q12HR IV Last administered on 10/29/16 08: 22; Start 10/27/16 at 10:00 Propofol (Diprivan) 20 ml @ As Directed STK-MED ONCE IV ; Start 10/27/16 at 12:00 ; Stop 10/27/16 at 12:01; Status DC Lidocaine HCl (Lidocaine HCl 2% Abboject) 100 mg STK-MED ONCE .ROUTE ; Start 10/27/16 at 12:00; Stop 10/27/16 at 12:01; Status DC Fentanyl Citrate (Fentanyl 2ml Vial) 100 mcg STK-MED ONCE .ROUTE ; Start at 12:01; Stop 10/27/16 at 12:02; Status DC Rocuronium [place] (Zemuron) 50 mg STK-MED ONCE .ROUTE ; Start 10/27/16 at 12:01 ; Stop 10/27/16 at 12:02; Status DC Succinylcholine Chloride (Anectine) 200 mg STK-MED ONCE .ROUTE ; Start 10/27/16 at 12:01; Stop 10/27/16 at 12:02; Status DC Ondansetron HCl (Zofran) 4 mg PRN Q6HRS PRN IV NAUSEA/VOMITING; Start 10/27/16 at 12:15; Stop 10/27/16 at 19:00; Status DC Fentanyl Citrate (Fentanyl 2ml Vial) 25 mcg PRN Q5MIN PRN IV MILD PAIN Last administered on 10/27/16 14:11; Start 10/27/16 at 12:15; Stop 10/27/16 at 19:00; Status DC Fentanyl Citrate (Fentanyl 2ml Vial) 50 mcg PRN Q5MIN PRN IV MODERATE PAIN; Start 10/27/16 at 12:15; Stop 10/27/16 at 19:00; Status DC Morphine Sulfate 1 mg 1 mg PRN Q10MIN PRN IV SEVERE PAIN; Start 10/27/16 at 12: 15; Stop 10/27/16 at 19:00; Status DC Lactated Ringer's (Iv Lactated Ringers) 1,000 ml @ 30 mls/hr Q24H IV ; Start at 12:07; Stop 10/27/16 at 17:17; Status DC Lidocaine HCl 2 ml PRN 1X PRN ID PRIOR TO IV START; Start 10/27/16 at 12:15; Stop 10/27/16 at 19:00; Status DC Hydromorphone HCl (Dilaudid) 0.5 mg PRN Q10MIN PRN IV SEV PAIN, Second choice; Start 10/27/16 at 12:15; Stop 10/27/16 at 19:00; Status DC Prochlorperazine Edisylate (Compazine) 5 mg PACU PRN PRN IV NAUSEA, MRX1 Last administered on 10/27/16t 14:10; Start 10/27/16 at 12:15; Stop 10/27/16 at 19:00; Status DC Bupivacaine HCl/ Epinephrine Bitart (Sensorcain-Mpf Epi 0.5%-1:920960) 30 ml STK -MED ONCE .ROUTE Last administered on 10/27/16 13:28; Start 10/27/16 at 12:55; Stop 10/27/16 at 12:56; Status DC Dexamethasone Sodium Phosphate (Decadron) 20 mg STK-MED ONCE .ROUTE ; Start 10/27 at 13:14; Stop 10/27/16 at 13:15; Status DC Desflurane (Suprane) 15 ml STK-MED ONCE IH ; Start 10/27/16 at 13:14; Stop at 13:15; Status DC Ondansetron HCl (Zofran) 4 mg STK-MED ONCE .ROUTE ; Start 10/27/16 at 13:42; Stop 10/27/16 at 13:43; Status DC Glycopyrrolate (Robinul) 1 mg STK-MED ONCE .ROUTE ; Start 10/27/16 at 13:43; Stop 10/27/16 at 13:44; Status DC Neostigmine Methylsulfate 5 mg 5 mg STK-MED ONCE .ROUTE ; Start 10/27/16 at 13:43 ; Stop 10/27/16 at 13:44; Status DC Ertapenem/Sodium Chloride (Invanz/Iv Sodium Chloride 0.9% 50ml) 50 ml @ 100 mls /hr Q24H IV Last administered on 10/28/16 15:29; Start 10/28/16 at 16:00 Sodium Chloride 3 ml 3 ml QSHIFT PRN IV AFTER MEDS AND BLOOD DRAWS; Start at 15:45 Lactated Ringer's (Iv Lactated Ringers) 1,000 ml @ 100 mls/hr Q10H IV ; Start 10/27/16 at 15:43 Acetaminophen/ Hydrocodone Bitart (Lortab 5/325) 1 tab PRN Q4HRS PRN PO MILD PAIN Last administered on 10/29/16 05:45; Start 10/27/16 at 15:45 Acetaminophen/ Butalbital/ Caffeine (Fioricet) 1 tab PRN Q6HRS PRN PO MIGRAINE HEADACHE; Start 10/28/16 at 16:15 Active Scripts Active No Active Prescriptions or Reported Medications Vitals/I & O Vital Sign - Last 24 Hours 10/28/16 10/28/16 10/28/16 10/28/16 15:00 15:34 19:15 20:25 Temp 97.7 98.1 97.7 98.1 Pulse 90 101 Resp 18 18 B/P 126/83 132/88 Pulse Ox 100 100 O2 Delivery Room Air unable to rate Room Air 10/28/16 10/28/16 10/29/16 10/29/16 20:30 23:21 02:59 05:45 Temp 98.5 98.8 98.5 98.8 Pulse 88 85 Resp 18 18 18 B/P 132/92 130/80 Pulse Ox 100 100 O2 Delivery Room Air Room Air Room Air Room Air 10/29/16 10/29/16 10/29/16 07:00 08:23 10:50 Temp 97.5 98.1 97.5 98.1 Pulse 94 93 Resp 18 18 B/P 126/78 129/83 Pulse Ox 98 99 O2 Delivery Room Air Room Air Room Air Intake and Output 10/28/16 10/28/16 10/29/16 14:59 22:59 06:59 Intake Total 800 ml 480 ml Balance 800 ml 480 ml CASTLE,NIAL K III DO Oct 29, 2016 12:40
--- NOTE | 2016-10-29 17:12 | PATHOLOGY ---
PATHOLOGY REPORT * * * * * * * * FINAL DIAGNOSIS: Appendix, laparoscopic appendectomy: - Acute appendicitis. - Reactive changes of small mesoappendiceal lymph node. COMMENT: There is no evidence of rupture. There is no evidence of malignancy. (JPM:; d/t: 10/29/16) REPORT ELECTRONICALLY SIGNED BY: Michael Gamboa M.D. DATE/TIME: 10/29/2016 16:20 * * * * * * * * GROSS PATHOLOGY: Received in formalin labeled "Wyatt Robert and appendix," is an appendix measuring 6.2 cm in length with a diameter ranging from 0.6 cm distally to 1.2 cm proximally with a moderate amount of attached mesoappendix. The serosal surface is red-nelson to simental-nelson, dull, and displays adhesions. Sectioning reveals 1.2 cm in diameter lumen filled with hemorrhagic to nelson-brown fecal fluid. The mucosa is dark red and granular. The wall is uniform measures 0.2 cm in thickness. Pleater sections are submitted as follows: A1 bisected distal tip and proximal resection margin A2-A3 sections from body of appendix (TTL; 10/28/2016) INITIAL CPT CODE(S): A; 57127 Professional services performed [place] [facility] [address] Technical services performed by [facility] at [address] [place] [address], [facility] [address] [address]. 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
--- NOTE | 2016-10-30 20:04 | DS ---
DATE OF DISCHARGE: 10/29/2016 ADMISSION DIAGNOSIS: Appendicitis. DISCHARGE DIAGNOSIS: Postop laparoscopic appendectomy. HOSPITAL COURSE: The patient is a pleasant 41-year-old male presented with a perforated appendix. He was admitted. We consulted General Surgery and was taken for a laparoscopic appendectomy. Post-procedure, he is doing great. We plan to discharge. DISPOSITION: Home. ACTIVITY: As tolerated. DIET: Low sodium. MEDICATIONS: Please see the MRAD. TOTAL TIME ON DISCHARGE: 33 minutes. RADHA ONTIVEROS DO DR: RANDALL/azeem JOB#: [id number] / [id number]
== END 2016-10-29 14:00 | disposition home or self-care (01) | DRG 340 ==
LOC: ER 20:27 → 4 NORTH 23:43
PROVIDERS: ADMIT Internal Medicine; ATTEND Internal Medicine
PROC: 0DTJ4ZZ Resection of Appendix, Percutaneous Endoscopic Approach (ICD-10-PCS; principal; 2016-10-27 12:30)
DX: K35.2 Acute appendicitis with generalized peritonitis (principal); E87.6 Hypokalemia; Z80.0 Family history of malignant neoplasm of digestive organs; Z88.0 Allergy status to penicillin
CPT/HCPCS: 36415; 74177; 80048; 80053; 81001; 83605; 83690; 85007; 85027; 88304; 93005; 96361; 96374; C1782; J0330; J0780; J1100; J1335; J1956; J2270; J2405; J2704; J2710; J3010; J3490; J7030; Q9967; 99285-25